=== PATIENT | female | born 2000 | race Caucasian/White ===

== ENCOUNTER 2022-10-04 13:52 | Outpatient (RCR) | payer OTHER, SELFPAY ==
[2022-10-04 14:49] VITALS: BP 112/68; PULSE 83
== END 2023-01-02 23:59 | disposition home or self-care (01) ==
LOC: ANHOBOP 13:52
PROVIDERS: PCP Family Medicine; Visit Provider Obstetrics & Gynecology
DX: O36.8130 Decreased fetal movements, third trimester, not applicable or unspecified (principal); Z3A.32 32 weeks gestation of pregnancy
CPT/HCPCS: 59025

== ENCOUNTER 2022-11-23 21:29 | Inpatient (IN) | payer OTHER, SELFPAY ==
[2022-11-23] VITALS (34 sets, daily range): BP systolic 87–142; BP diastolic 34–103; PULSE 75–226; O2SAT 93–100
[2022-11-23] MEDS: LACTATED RINGERS 500 ML 999 ML IV CONT (22:00)
--- NOTE | 2022-11-23 22:26 | WPDANESEPPF ---
Anes - Initial Pre Proc Eval Procedure: labor epidural Date/Time: 11/23/22 22:26 Surgeon: Ameena Villanueva MD Pre Op Diagnosis: Labor pain Pre Op Diagnosis: Labor Patient Data Age: 22 Gender: F Height: Weight: Last Vital Signs Pulse 88 11/23/22 22:15 BP 115/76 11/23/22 22:15 Allergies Allergy/AdvReac Type Severity Reaction Status Date / Time vancomycin Allergy Unknown Redness of Verified 10/24/22 12:47 Skin Home Medications Medication Instructions Recorded Confirmed Type albuterol sulfate 90 mcg/actuation 1 puff inhalation QID PRN Wheezing 10/24/22 10/24/22 History aerosol inhaler ferrous sulfate 325 mg (65 mg 325 mg PO DAILY 10/24/22 10/24/22 History iron) tablet prenat.vits,cynthia,hlf-gcag-tjixg 1 tablet 10/24/22 History Patient hx anesthesia problems: none Family hx anesthesia problems: none Results Review: All pre-operative results and documents have been reviewed as part of the pre-operative evaluation. [facility] Family History Family History (Updated 10/24/22 @ 12:49 by Ayde Mendoza RN) Other Patient denies significant medical history Social History Social History Substance use: never Spiritual care concerns: No Comments Asthma Anes - Eval Final PreProcedure Day of Procedure 11/23/22 22:26 Patient weight: normal ASA classification: II Anesthetic plan: proceed Anesthesia type and monitoring: regional epidural and standard monitoring Results Review: All pre-operative results and documents have been reviewed as part of the pre-operative evaluation. Informed Consent: The patient's anesthetic plan and its attendant risks and benefits were discussed with the patient/family/POA. Questions were solicited and answers provided to the satisfaction of the patient/family/POA.
[2022-11-23 22:44] LABS: Basophils Percent Auto 0.2 % (0.2-1.2); Eosinophils Absolute Auto 0.3 K/mm3 (0-0.3); Eosinophils Percent Auto 2.3 % (0-4.4); Hematocrit 30.9 % (37.0-47.0); Hemoglobin 10.8 g/dL (12.0-15.0); Immature Granulocyte Absolute 0.04 K/mm3 (0.00-0.031); Immature Granulocyte Percent A 0.4 % (0-0.5); Lymphocytes Absolute Auto 2.14 K/mm3 (0.9-3.2); Lymphocytes Percent Auto 19.6 % (18.3-44.2); Mean Corpuscular Hemoglobin 33.4 pg (26-34); Mean Corpuscular Volume 95.7 fl (80-100); Mean Platelet Volume 10.9 fl (7.4-10.4); Monocytes Absolute Auto 0.7 K/mm3 (0.1-0.6); Monocytes Percent Auto 6.1 % (2.6-8.5); Neutrophils Absolute Auto 7.8 K/mm3 (1.3-6.7); Neutrophils Percent Auto 71.4 % (45.5-73.1); Platelet Count Result 145 k/mm3 (150-375); Red Blood Count 3.23 M/mm3 (4.2-5.4); Red Cell Distribution Width 12.8 % (11.5-14.5); White Blood Count 10.9 K/mm3 (4.5-10.0)
[2022-11-23] MEDS: fentaNYL CITRATE INJ (*CRX) 100 MCG/2 ML VIAL 50 MCG IV PUSH (22:45)
--- NOTE | 2022-11-23 23:49 | WPDANESEPN ---
Anes - Epidural Procedure Note Date/Time: 11/23/22 23:49 Consent: I have discussed with the patient/family/POA, the placement of an epidural catheter and the use of epidural narcotic/local anesthetic for labor analgesia and/or postoperative pain management, including associated potential risks, benefits, complications and side effects. I have discussed alternative methods of labor analgesia and/or postoperative pain management. The patient/family/POA, understand(s) and wish(es) to proceed with epidural narcotic/local anesthetic for labor analgesia and/or postoperative pain management. Time-Out: A pre-procedural Time-Out was completed immediately before starting the procedure and confirmed: Patient Identification, Site, Procedure, Patient Position and the Availability of Requisite Equipment. Clinical Indications: Labor pain Epidural Insertion Note Patient position: sitting Skin prep: chlorhexidine and sterile drape Needle: 18g Tuohy-Schliff Catheter: 20g Unstyleted Technique: Loss of resistance. Level of insertion: L3/4 Catheter skin shannan (cm): 5 Length in epidural space (cm): 10 Skin anesthesia: lidocaine 1% Test dose: 1.5% Lidocaine with 1:[id number] Epi, negative for subarachnoid Inj and negative for intravascular Inj Time of test dose: 23:12 Observations: tolerated well Complications: none
[2022-11-24] VITALS (30 sets, daily range): BP systolic 86–163; BP diastolic 49–117; PULSE 54–136; RESP 14–18; TEMP 36.6–37.5; O2SAT 93–100
[2022-11-24] MEDS: OXYTOCIN 30 UNITS/NS 500 ML 30 UNITS/500 ML BAG 999 UNITS IV CONT (00:17)
[2022-11-24] MEDS: LIDOCAINE HCL 1% LOCAL INJ 20 ML VIAL ×2 (00:20→00:25)
--- NOTE | 2022-11-24 00:43 | WPDHPUPDATE1 ---
History and Physical Update Update Date/Time: 11/24/22 00:43 History and Physical has been reviewed, including an updated exam of the patient. There are NO changes in the patient's condition. Risks, benefits, and alternatives have been discussed and questions answered. Patient agrees to proceed with procedure.
--- NOTE | 2022-11-24 00:43 | PM.OBPRVD ---
OB - Delivery Note Procedure Delivery date: 11/24/22 Procedure: Induction method: None Delivery monitor: External FHT and External Uterine Route of delivery: Episiotomy description: None Laceration Description: Perineal - 2nd Degree Delivery repair: vicryl Quantitative Blood Loss (ml): 250 Anesthesia type: None Disposition: Floor Raymond Baby Date of : 11/24/22 Time of : 00:12 Weeks of gestation at delivery: 40 Infant gender: Female Placenta delivery description: Spontaneous Cord Vessel Description: 3 Vessels score one minute: 8 score five minutes: 8
[2022-11-24] MEDS: OXYTOCIN 30 UNITS/NS 500 ML 30 UNITS/500 ML BAG 125 UNITS IV CONT (00:50)
--- NOTE | 2022-11-24 05:04 | LDADM ---
This patient, Carolina Ge, was admitted to OB 2nd Floor Room 283 on 11/23/22 at 21:29. Plans for labor, pain management and were discussed with patient. Patient/family oriented to hospital policies and general routines including ID bracelet, bed and alarms, visiting hours, pain management, procedures, bathroom and other care routines, personal items, smoking policy, room service/diet and guest tray routines, infant security routines, and visiting hours. Patient/Family are encouraged to report perceived risks to care and to ask questions if they do not understand what they are told or what they should do. See OBIX for further documentation.
[2022-11-24] MEDS: IBUPROFEN 600 MG TABLET PO ×4 (05:10→22:47)
[2022-11-24] MEDS: MULTIVIT/MIN/PREN/FOL AC/IRON TABLET 1 TAB PO (09:30)
[2022-11-24] MEDS: DOCUSATE SODIUM 100 MG CAPSULE PO ×2 (09:30→17:00)
[2022-11-24] MEDS: ACETAMINOPHEN 325 MG TABLET 650 MG PO ×2 (12:30→20:29)
[2022-11-24 13:50] LABS: Rapid Plasma Reagin Non-Reactive (NonReactive)
[2022-11-25] MEDS: ACETAMINOPHEN 325 MG TABLET 650 MG PO (04:49)
[2022-11-25 05:07] LABS: Hematocrit 27.3 % (37.0-47.0); Hemoglobin 9.1 g/dL (12.0-15.0)
--- NOTE | 2022-11-25 07:56 | WPDANLDPN2 ---
Anes-Prog Note L&D Date/Time: 11/25/22 07:56 Comfortable throughout: labor and delivery Neuraxial method: epidural Epidural/Spinal procedure site: clean & non-tender Neuro status: Neuro function grossly intact. Cardiovascular status: normal Respiratory status: normal Airway patency: baseline Mental status: baseline Post-Op hydration status: normal Vital Signs: Last Vital Signs Temp 36.9 C 11/24/22 20:45 Pulse 79 11/24/22 20:45 Resp 16 11/24/22 20:45 BP 114/73 11/24/22 20:45 Pulse Ox 98 11/24/22 20:45 O2 Del Method Autopap 11/24/22 12:30 Pain score (VAS): 2 I/O: Intake & Output 11/24/22 11/24/22 11/25/22 15:59 23:59 07:59 Intake Total 850 500 Balance 850 500 Post-procedural complaints: none Patient feedback: Patient satisfied with anesthetic care.
[2022-11-25 08:10] VITALS: BP 109/69; PULSE 77; RESP 18; TEMP 36.4; O2SAT 100
[2022-11-25] MEDS: WITCH HAZEL 40 PADS 1 PAD TOPICAL (09:00)
[2022-11-25] MEDS: IBUPROFEN 600 MG TABLET PO (09:00)
[2022-11-25] MEDS: DIBUCAINE 1% OINTMENT 30 GM TUBE 1 APPLIC TOPICAL (09:00)
[2022-11-25] MEDS: MULTIVIT/MIN/PREN/FOL AC/IRON TABLET 1 TAB PO (09:00)
[2022-11-25] MEDS: DOCUSATE SODIUM 100 MG CAPSULE PO (09:00)
[2022-11-25] MEDS: POLYSACCHARIDE IRON COMPLEX 150 MG CAPSULE PO (09:00)
--- NOTE | 2022-11-25 09:28 | PM.OBPNVD ---
OB - PN: Subj Subjective Date/time seen: 11/25/22 09:28 Patient comments: no complaints, pain well controlled, incisional pain, tolerating diet and flatus present OB - PN: Obj Data Labs 11/25/22 04:54 Labs: Laboratory Results - last 24 hr 11/23/22 11/25/22 22:39 04:54 Hgb 9.1 L Hct 27.3 L RPR Non-reactive OB - PN A/P Plan day: 1 Plan: routine care Comments: No problems, routine care Time Spent With Patient Time: Total time spent is greater than 50% in coordination of care (as documented) at patient's floor/unit and/or counseling patient: Exam Const: General: comfortable, no acute distress and alert Resp: Effort & Inspection: normal respiratory effort Auscultation: no crackles, no rales and no rhonchi Cardio: Rate: regular rate Heart sounds: no click, no murmurs and no rubs GI: Inspection: non-distended GI Palp: No Tenderness to palpation present (GI) Auscultation: normal bowel sounds Other: Incision - CDI Extrem: General: normal to inspection, no pedal edema and no calf tenderness
--- NOTE | 2022-11-25 09:28 | PM.OBDSVD ---
DS: Admitting Diagnosis Discharge Date 11/25/2022 Admitting Diagnosis term , labor DS: Discharge Diagnosis Discharge Diagnosis (1) Term delivered: Code(s): O80 - Encounter for full-term uncomplicated delivery Status: Acute OB - DS: Summary OB Procedures : None OB Procedures Intrapartum: Spontaneous Vag Delivery OB Procedures: : None Time Spent with Patient Time attestation: Total time spent providing and/or coordinating discharge services: DS: Data Data Completed and Pending Labs on day of discharge: Labs from last 24 hours 11/25/22 11/23/22 04:54 22:39 Hgb 9.1 L Hct 27.3 L RPR Non-reactive Discharge Plan Discharge Discharging Clinician: Ameena Villanueva Patient Disposition: Home, Self-Care Activity: pelvic rest Diet: regular Patient Instructions: Antibiotic Form Stand Alone Forms: General Discharge Information Follow-up/Referrals: Ameena Villanueva MD [Physician] - Discharge Medications: Continued ferrous sulfate 325 mg (65 mg iron) Tablet 325 mg PO DAILY #2 Tablet 1 tablet albuterol sulfate 90 mcg/actuation Hfa Aerosol Inhaler 1 puff INHALATION QID PRN (Reason: Wheezing) Date of admission: 11/23/22 21:29 Primary Care Provider: LeilaPetr Admitting Provider: Ameena Villanueva Attending physician on admission: Ameena Villanueva Condition: Stable
== END 2022-11-25 13:20 | disposition home or self-care (01) | DRG 807 ==
LOC: ANHLDR 22:05 → ANHOB2 11-24 04:42
PROVIDERS: Admitting Provider Obstetrics & Gynecology; PCP Family Medicine; Visit Provider Obstetrics & Gynecology
DX: O62.3 Precipitate labor (principal); Z37.0 Single live birth; Z3A.40 40 weeks gestation of pregnancy; O69.81X0 Labor and delivery complicated by cord around neck, without compression, not applicable or unspecified; O70.1 Second degree perineal laceration during delivery
CPT/HCPCS: 36415; 85014; 85018; 85025; 86592; 86850; 86900; 86901; A9270; J2590; J2795; J3010; J7120

== ENCOUNTER 2024-06-08 17:38 | Observation (INO) | payer OTHER, SELFPAY ==
[2024-06-08] VITALS (14 sets, daily range): BP systolic 104–117; BP diastolic 60–64; PULSE 88–103; O2SAT 100; BMI 23.6
--- OUTSIDE RECORDS SUMMARY | 2024-06-08 17:47 | XMS_ITS | Clinical Summary ---
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 2 8 Active ascorbic acid (VITAMIN C) 500 mg tablet,chewable Take one tablet twice daily 60 tablet/chew tab 8 Active XULANE 150-35 mcg/24 hr 2 9 Active mometasone (NASONEX) 50 mcg/actuation nasal spray 9 Active polyethylene glycol (MIRALAX) 17 gram packetIndicatio ns:constipation Take 1 packet (17 g total) by mouth daily 30 packet 0 Active meclizine (ANTIVERT) 25 mg tablet Take 1 tablet (25 mg total) by mouth 3 (three) times a day as needed for dizziness 30 tablet 1 Active LORazepam (Ativan) 1 mg tablet Take 1 tablet (1 mg total) by mouth 3 (three) times a day as needed for anxiety 15 tablet 1 Active Active Problems Problem Noted Date Diagnosed Date Painful orthopaedic hardware 03/30/2018 Overview (03/30/2018): Added automatically from request for surgery [id number] Flexion contracture of elbow, left 03/30/2018 Overview (03/30/2018): Added automatically from request for surgery [id number] Closed fracture of left distal humerus 8 Overview (10/21/2017): Added automatically from request for surgery [id number] Acne 12/01/2011 Surgical History Surgery Date Site/Laterality Comments TONSILLECTOMY/ADENOIDECTOMY HUMERUS FRACTURE SURGERY Medical History Medical History Date Comments PONV (postoperative nausea and vomiting) Weight loss Asthma Hematuria Kidney stones Back pain Family History Medical History Relation Name Comments No Known Problems Father No Known Problems Mother Relation Name Status Comments Father Mother Social History Tobacco Use Types Packs/Day Years Used Date Smoking Tobacco: Never Smokeless Tobacco: Never Alcohol Use Standard Drinks/Week Comments No 0 (1 standard drink = 0.6 oz pur e alcohol) Comments No Sex and Gender Information Value Date Recorded Sex Assigned at Not on file Legal Sex Female 7:52 PM HUMANITIES DIVISION CHAIR Gender Identity Not on file Sexual Orientation Not on file Obstetrics History Last Filed Vital Signs Vital Sign Reading Time Taken Comments Blood Pressure 96/50 04/15/2022 12:51 PM HUMANITIES DIVISION CHAIR Pulse 57 04/15/2022 12:51 PM HUMANITIES DIVISION CHAIR Temperature 36.6 C (97.8 F) 04/15/2022 12:51 PM HUMANITIES DIVISION CHAIR Respiratory Rate 18 04/15/2022 12:51 PM HUMANITIES DIVISION CHAIR Oxygen Saturation 99% 04/15/2022 12:51 PM HUMANITIES DIVISION CHAIR Inhaled Oxygen Concentration - - Weight 54.5 kg (120 lb 1.6 oz) 04/15/2022 12:51 PM HUMANITIES DIVISION CHAIR Height 157.5 cm (5' 2 ) 04/15/2022 12:51 PM HUMANITIES DIVISION CHAIR Body Mass Index 21.97 04/15/2022 12:51 PM HUMANITIES DIVISION CHAIR Plan of Treatment Health Maintenance Due Date Last Done Comments Cervical Cancer Screening 1999 Depression Screening 1999 Hepatitis C Screening 1999 HPV Vaccines (2 - 2-dose series) 05/27/2014 11/24/2013 Regular Well Visit/Exam 18-64 07/23/2017 DTaP/Tdap/Td Vaccine (7 - Td or Tdap) 11/22/2020 11/22/2010, 12/13/2004, 01/01/2001, Additional history exists Influenza Vaccine (#1) 2024 2, 02/28/2019, 01/26/2017 Pneumococcal vaccine <65 Aged Out 01/01/2001, 05/2000 No longer eligible based on patient's age to complete this topic Varicella Vaccines Completed 08/05/2012, 07/30/2000 Medical Devices Implanted Type Area Granite Polisher Machine Device Identifier Shelf Expiration Date Model / Serial / Lot Plate Short 72mm Ss 2.7/3.5mm Screw 1 Hole Varangl Taper Tip - [id number] Implanted:Qty: 1 on 10/22/2017 by Quinn Bah MD at [facility] Synthes I [id number] / / 3.5mm Cannulated Screws Partially Threaded Implanted:Qty: 1 on 10/22/2017 by Quinn Bah MD at [facility] Synthes I 205.050 / 205.050 / [id number] 2.7mm/ 3.5mm Variable Angle Lcp Posterolateral Distal Humerus Plates Implanted:Qty: 1 on 10/22/2017 by Quinn Bah MD at [facility] Synthes I [id number] [id number] / / Synthes 204.816 3.5mm 6mm 16mm 2.5mm Self Tap Small Hexagonal Socket Low Profile - [id number] Implanted:Qty: 1 on 10/22/2017 by Quinn Bah MD at [facility] Synthes I 204.816 / / Synthes 204.818 3.5mm 6mm 18mm 2.5mm Self Tap Small Hexagonal Socket Low Profile - [id number] Implanted:Qty: 1 on 10/22/2017 by Quinn Bah MD at [facility] Synthes I 204.818 / / Synthes [id number] 2.7mm 16mm Self Tap Lock Variable Angle Stardrive T8 Screw Bone - [id number] Implanted:Qty: 2 on 10/22/2017 by Quinn Bah MD at [facility] Synthes I [id number] / / Synthes 02.211.018 2.7mm 18mm Self Tap Lock Variable Angle Stardrive T8 Screw Bone - [id number] Implanted:Qty: 2 on 10/22/2017 by Quinn Bah MD at [facility] Synthes I .018 / / 2.7mm Variable Angle Locking Screws, Self-Tapping, Wiht T8 [address] Recess Implanted:Qty: 1 on 10/22/2017 by Quinn Bah MD at [facility] Synthe[employer] I .014 / 014 / 2.7 Mm Variable Angle Locking Screws, Self Tapping With T8 [address] Recess Implanted:Qty: 1 on 10/22/2017 by Quinn Bah MD at [facility] Synthes I .040 / .040 / Explanted Type Area Granite Polisher Machine Device Identifier Shelf Expiration Date Model / Serial / Lot 2.7mm Variable Angle Locking Screws, Self-Tapping, Wiht T8 [address] Recess Explanted:Qty: 2 on 10/22/2017 at [facility] Synthes I .022 / 040 / [facility] PLUS [facility] PL[facility] Advance Directives For more information, please contact: [phone] Documents on File Type Date Recorded Patient Straddle Truck Operator Expl anation ADVANCE DIRECTIVE 07/05/2019 10:51 AM Care Teams Conveyancer Relationship Specialty Start Date End Date Charis Stapleton MD PCP - General 01/26/17
--- OUTSIDE RECORDS SUMMARY | 2024-06-08 17:47 | XMS_ITS | Clinical Summary ---
Author Organization 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 Active ondansetron (Zofran) 4 MG TabletIndicatio ns:Epigastric pain,Colicky abdominal pain Take 1 Tablet by mouth every 8 hours as needed for Nausea - 1st line. 15 Tablet 3 Active Active Problems No known active problems Immunizations Immunization Administration Dates Next Due DTAP VACCINE 12/13/2004, 1,06/04/2000,01/12,1999 HEP B/HIB Combined Vaccine 01/01/2001,06/04/2000 ,01/13/2000 Hepatitis A Vaccine, Pediatric/adolescent, 2 Dose Schedule 11/29/2013,08/05/2012 Hepatitis B Vaccine, Pediatric/adolescent 1999 Hib Vaccine,unspecified Formulation 1999 Hpv, Unspecified Formulation 11/24/2013,08/06/19 13 Inactivated Polio Vaccine 12/13/2004,,01/13/2000,09/23 Influenza Vaccine, Quadrivalent, PF 05/30/2021,1 ,01/26/2017 MMR Vaccine 12/13/2004,07/30/2000 Meningococcal Vaccine 01/19/2017 Meningococcal Vaccine, Unspe cified Formulation 11/22/2010 Pneumococcal Vaccine Peds - 7 Valent 01/01/2001, 06/04/2000 TB Skin Test 11/12/2021 TDAP Vaccine 10/06/2022,11/22/2010 Varicella Vaccine Live 08/05/2012,07/30/2000 Social History Tobacco Use Types Packs/Day Years Used Date Smoking Tobacco: Never Smokeless Tobacco: Never Tobacco Cessation:Counseling Given: Not Answered Alcohol Use Standard Drinks/Week Comments Never 0 (1 standard drink = 0.6 oz pur e alcohol) PHQ-2 Answer Date Recorded Total Score - Questions 1-9 0 05/05 Education Answer Date Recorded What is the highest level of school you have completed or the highest degree you have received? Associate degree: occupational, technical, or vocational program 03/19/2023 Sexually Active Control Partners Comments Yes Comments No Sex and Gender Information Value Date Recorded Sex Assigned at Not on file Legal Sex Female 11:53 AM DRILLER AND BROACHER Gender Identity Female 03/19/2023 3:33 PM DRILLER AND BROACHER Sexual Orientation Not on file Last Filed Vital Signs Vital Sign Reading Time Taken Comments Blood Pressure 92/74 03/19/2023 11:01 AM DRILLER AND BROACHER Pulse 98 03/19/2023 11:01 AM DRILLER AND BROACHER Temperature 36.2 C (97.1 F) 03/19/2023 11:01 AM DRILLER AND BROACHER Respiratory Rate 16 03/19/2023 11:01 AM DRILLER AND BROACHER Oxygen Saturation 97% 03/19/2023 11:01 AM DRILLER AND BROACHER Inhaled Oxygen Concentration - - Weight 54.4 kg (120 lb) 03/19/2023 11:01 AM DRILLER AND BROACHER Height 157.5 cm (5' 2 ) 03/19/2023 11:01 AM DRILLER AND BROACHER Body Mass Index 21.95 03/19/2023 11:01 AM DRILLER AND BROACHER Plan of Treatment Health Maintenance Due Date Last Done Comments Hepatitis C Virus (HCV) Screening 1999 Influenza Immunization (#1) 01/03/202405/05, 02/28/2019, 01/26/2017 SARS-COV-2 Immunization ( season) 2024 04/24/2021, 10/07/2020, 09/16/2020 DTaP/Tdap/Td Immunization (8 - Td or Tdap) 10/06/2032 10/06/2022, 11/22/2010, 12/13/2004, Additional history exists Respiratory Syncytial Virus (RSV) Immunization (Adult) (1 - 1-dose 75+ series) 07/23/2074 Hepatitis B Immunization Completed 001, 06/04/2000, 01/13/2000, Additional history exists Pneumococcal Immunization Combined Aged Out 01/01/2001, 06/04/2000 No longer eligibl e based on patient's age to complete this topic Human Papillomavirus (HPV) Immunization Completed 11/24/2013, 08/05/2012 Meningococcal Immunization (ACWY) Completed 01/19/2017, 11/22/2010 Pap Smear Discontinued 05/23/2021 Rotavirus Immunization Aged Out No lo nger eligible based on patient's age to complete this topic Insurance Care Teams Food Safety Officer Relationship Specialty Start Date End Date Petr Dee MD PCP - General Family Medicine 05/30/21 Chasidy Alfred, RESIDENTIAL PROPERTY TAX APPRAISER, POSTDOCTORAL RESEARCH FELLOW [address] [place] [address] Obstetrics & Gynecology 05/30/21
--- OUTSIDE RECORDS SUMMARY | 2024-06-08 17:47 | XMS_ITS | Data Portability ---
Author Organization [facility] Address [address] [place] [address] [place] [address] Care Team Providers Care Parking Regulation Enforcement Officer Name Role Phone LEILA BALLARD Primary Care Provider Assessment Encounter Date Assessment Date Assessment LastModified by Organization Details LastModified Time 03/14/2024 03/14/2024 Patient is ___weeks . Discussed plan. Not available 03/14/2024 16:29:43 04/11/2024 04/11/2024 Patient is ___weeks . Discussed plan. Not available 04/11/2024 17:27:29 05/18/2024 05/18/2024 Patient is ___weeks . Discussed plan. Not available 05/18/2024 15:18:12 06/06/2024 06/06/2024 Patient is ___weeks . Discussed plan. Not available 06/06/2024 11:08:57 Plan of Treatment Reminders Order Date Submit Date Provider Last Modified By Organization Details Last Modified Time Details Appointments OB ROUTINE 2024 03:30P Maryellen VILLANUEVA MD Not available Not available Not available Lab None recorded. Referral None recorded. Procedures None recorded. Surgeries None recorded. Imaging US, obstetric , 2nd or 3rd trimester 2023 024 [email or web address] [facility], [place], [address], 04/11/2024 20:34:31 Medication Orders None recorded. Patient TargetsNo targets recorded. Patient InstructionsNo instructions recorded. Reason for Referral None Reported. Results Created Date Observation Date Name Description Value Unit Range Abnormal Flag Note LastModifiedBy Organization Detail LastModifiedTime 02/15/20 24 02/15/2024 CULTU RE: URINE result report SEE RESULT S BELOW Test: Cultu re: Urine Speci men Sourc e: Urine - Clean Catch Speci men Type: Urine Speci men Date: 02/14 1557 Resul t Date: 02/16 0250 Resul t Statu s: Final resul t Abnor mal: No Resul ting Lab: [facility] [address] [facility] [address] Tel: [phone] CULTU RE ----- ----- ----- --- No growt h in 1 day (dete ction level of 10,00 0 colon ies / ml.) Not Available [facility] (Lab) [address] [place], [address], 02/17/2024 03:54:34 06/06/19 25 06/06/2024 HEMOG LOBIN (HGB) HGB 10.7 g/dL (based on docume nted legal sex) 11.6-1 5.4 low Not Available [facility] (Lab) [address] [place], [address], 06/07/2024 14:20:35 06/06/19 25 06/06/2024 HEMAT OCRIT (HCT) HCT 31.7 % (based on docume nted legal sex) 34.0-4 5.0 low Not Available [facility] (Lab) [address] [place], [address], 06/07/2024 14:20:35 06/06/19 25 06/06/2024 GTT - GESTA MEREDITH Zhang Zhang, ACOG OB glucose, 1 hour screen 111 mg/dL 70-135 Not Available [facility] (Lab) [address] [place], [address], 06/07/2024 14:20:36 06/06/19 25 06/06/2024 HIV 1/2 ANTIG EN/AN TIBOD Y, REFLE X CONFI RMATI ON HIV antigen/anti body Nonrea ctive nonrea ctive HIV-1 antig en and HIV-1 /HIV- 2 antib odies were not detec ethel. No labor atory evide nce of HIV infec tion. Not Available [facility] (Lab) [address] [facility], [place], [address], 06/07/2024 14:20:36 06/06/19 25 06/06/2024 RPR SCREE N, REFLE X TITER /CONF IRMAT ION RPR screen Nonrea ctive nonrea ctive Not Available [facility] (Lab) [address], [place], [address], 06/07/2024 14:20:36 02/15/20 24 02/15/2024 US, obste tric, nucha l trans lucen cy No observ ation record ed. [email or web address] [facility] [address], [place], [address], 02/15/2024 17:20:20 02/15/20 24 02/15/2024 US, obstleti tric, 1st trime ster No observ ation record ed. [email or web address] [facility] [address], [place], [address], 02/15/2024 17:20:29 02/15/20 24 02/15/2024 US, obste tric, follo w-up No observ ation record ed. [email or web address] [address], [place], [address], 02/16/2024 09:25:14 04/11/20 24 04/11/2024 US, obste tric, 2nd or 3rd trime ster No observ ation record ed. [email or web address] [facility] [address], [place], [address], 04/11/2024 18:06:33 04/11/20 24 04/11/2024 US, obste tric, 2nd or 3rd trime ster No observ ation record ed. [email or web address] [address], [place], [address], 04/11/2024 21:24:00 Result Notes None recorded. Problems Name Problem SNOMED Code Status Onset Date Resolution Date Notes Provider Name and Address Organization Details Recorded Time Pregnanc y 71226069 Completed 202211/28/2022 Angela yen [facility] 4 16:11:48 Sciatica 70157686 Completed Beti Palmer [facility], [facility] 3 13:50:28 Pain in round ligament in pregnanc y [id number] 615253 Completed Beti Palmer [facility] 3 13:50:28 Neuralgi a 83980186 Completed lateral foot Beti Palmer [facility], [facility] 3 13:50:28 Pregnanc y 63334090 Active 2023 Angela yen [facility] 4 16:11:48 Problem Notes None recorded. Procedures Surgical History Date Name Laterality Status Provider Name and Address Organization Details Recorded Time 03/13/20 23 Date of Last Pap Smear completed Angela Lowery [facility] 01/18/2024 16:40:21 05/04/19 20 Orthopedic Surgery completed Trudy Hines [facility] 08/04/2022 12:08:58 05/04/19 18 Orthopedic Surgery completed Trudy Hines [facility] 08/04/2022 12:08:38 05/04/19 18 termination of completed Trudy Hines [facility] 08/04/2022 12:09:12 05/04/19 05 tonsilectomy/ad enoids completed Trudy Hines [facility] 08/04/2022 12:08:25 Imaging Results Imaging Date Name Status LastModified by Organization Details LastModified Time 02/15/2024 US, obstetric, nuchal translucency completed [email or web address] [facility] [address], [place], [address], 02/15/2024 17:20:20 02/15/2024 US, obstetric, 1st trimester completed [email or web address] [facility] [address], [place], [address], 02/15/2024 17:20:29 02/15/2024 US, obstetric, follow-up completed [email or web address] [address], [place], [address], 02/16/2024 09:25:14 04/11/2024 US, obstetric, 2nd or 3rd trimester completed [email or web address] [facility] [address], [place], [address], 04/11/2024 18:06:33 04/11/2024 US, obstetric, 2nd or 3rd trimester completed [email or web address] [address], [place], [address], 04/11/2024 21:24:00 Procedure Notes None recorded. Medical Equipment None Reported. Allergies Allergen ID Allergen Name Allergen Category Reaction Reaction Severity Criticality Documentation Date Start Date Code Code System Note Provider Name and Address Organization Details Recorded Time 26972 vancomyci n medicatio n rash severe Not available 04/14/2022 08407 RxNorm Red man syndr ome Marcela Cobb [facility] 2 14:29:33 50410 vancomyci n hydrochlo ride medicatio n other moderate Not available 05/15/2022 06798 RxNorm Marcela Cobb [facility] 3 10:19:19 Medications Name Sig Start Date Stop Date Status Note LastModified by Organization Details LastModified Time ciprofloxaci n 500 mg tablet TAKE 1 TABLET BY MOUTH EVERY 12 HOURS 03/13 completed Not Available Not Available Not Available fluticasone propionate 50 mcg/actuatio n nasal spray,suspen corby SHAKE LIQUID AND USE 1 SPRAY IN EACH NOSTRIL TWICE DAILY 08/04 completed Not Available Not Available Not Available amoxicillin 875 mg-potassium clavulanate 125 mg tablet TAKE 1 TABLET BY MOUTH EVERY 12 HOURS FOR 10 DAYS 08/04 completed Not Available Not Available Not Available Retinol topical cream 03/13 completed Not Available Not Available Not Available Unisom (doxylamine) active Not Available Not Available Not Available active Not Available Not Avai lable Not Available Vitamin 03/13 completed Not Available Not Available Not Available Vitals Date Recorded Body weight Systolic blood pressure Diastolic blood pressure Provider Name and Address Organization Details Last Updated DateTime 03/14/2024 44622.0844 g 115 mm[Hg] 74 mm[Hg] [facility] 03/14/2024 16:30:20 Date Recorded Body height Body mass index (BMI) Body weight Systolic blood pressure Diastolic blood pressure Provider Name and Address Organization Details Last Updated DateTime 04/11/2024 157.48 cm 22.7 kg/m2 80525.45 388 g 111 mm[Hg] 73 mm[Hg] [facility] 4 17:39:53 Date Recorded Body height Body mass index (BMI) Body weight Systolic blood pressure Diastolic blood pressure Provider Name and Address Organization Details Last Updated DateTime 05/18/2024 157.48 cm 23.8 kg/m2 31455.00 81 g 126 mm[Hg] 85 mm[Hg] [facility] 5 15:19:55 Date Recorded Body weight Systolic blood pressure Diastolic blood pressure Provider Name and Address Organization Details Last Updated DateTime 06/06/2024 98514.7852 1 g 113 mm[Hg] 77 mm[Hg] [facility] 06/06/2024 11:10:19 Social History Question Answer Notes LastModified by Organizat ion Details LastModified Time Tobacco Smoking Status Never Smoker Ena Sorensen yovana, [facility] 03/13/2023 13:53:57 Do You Have An Advance Directive? No [email or web address] Information n ot available 08/04/2022 What Is Your Level Of Alcohol Consumption? Occasional [email or web address] Information not available 08/04/2022 If You Are , What Was Your Level Of Alcohol Consumption Prior To ? Occasional [email or web address] Information not available 03/13/2023 How Many Years Have You Consumed Alcohol? 1 [email or web address] Information not available 08/04/2022 Are You Blind Or Do You Have Difficulty Seeing? No Information n ot available 05/15/2022 What Is Your Level Of Caffeine Consumption? Occasional [email or web address] Information not available 08/04/2022 In The 14 Days Before Symptom Onset, Have You Had Close Contact With A Laboratory-confirm ed COVID-19 While That Case Was Ill? No Information n ot available 05/15/2022 In The 14 Days Before Symptom Onset, Have You Had Close Contact With A Person Who Is Under Investigation For COVID-19 While That Person Was Ill? No Information not available 05/15/2022 Have You Been To An Area Known To Be High Risk For COVID-19? No Information not available 05/15/2022 Are You Deaf Or Do You Have Serious Difficulty Hearing? No [email or web address] Information not available 08/04/2022 What Type Of Diet Are You Following? REGULAR Information n ot available 05/15/2022 What Is The Highest Grade Or Level Of School You Have Completed Or The Highest Degree You Have Received? 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 No Information not available 05/15/2022 Do You Use Protection During Sex? No Information not available 05/15/2022 Do You Use Your Seat Belt Or Car Seat Routinely? Yes Information not available 05/15/2022 Do You Have Smoke And Carbon Monoxide Detectors In Your Home? Yes Information not available 05/15/2022 How Much Tobacco Do You Smoke? No Information not available 05/15/2022 Do You Feel Stressed (tense, Restless, Nervous, Or Anxious, Or Unable To Sleep At Night)? [id number] Information not available 05/15/2022 Do You Use Any Illicit Or Recreational Drugs? No Information not available 05/15/2022 Do You Use Sunscreen Routinely? Yes Information not available 05/15/2022 Have You Used IV Drugs? No Information not available 05/15/2022 Sex: Unknown Functional Status Question Answer Note LastModified by Organizat ion Details LastModified Time Do you have difficulty walking or climbing stairs? No [email or web address] Information not available 03/13/2023 Are you able to walk? [email or web address] Information not available 05/15/2022 Are you able to care for yourself? Yes [email or web address] Information not available 03/13/2023 Do you have difficulty dressing or bathing? No [email or web address] Information not available 03/13/2023 What is your exercise level? Occasional [email or web address] Information not available 08/04/2022 Mental Status None recorded. Family History Relationship Description Onset Age of this Age Resolved Age Notes LastModified by Organization Details LastModified Time Father No current problems or disability [email or web address] Not available 03/13 14:02:14 Mother No current problems or disability [email or web address] Not available 03/13 14:02:14 Medical History Condition Response Allergies (Food, seasonal, environmental ) Y Other Y Blood Transfusion N Drug/Latex Allergies/Reactions N Breast Cancer N Dermatologic Disorders N Lung Disease N Defects or Inherited Disease N Breast Problem N Gestational Diabetes N Hematologic disorders N Anesthesia Complications N History of STI N Deep Vein Thrombosis N Polycystic ovary syndrome N Anxiety Disorder N Autoimmune disease N Arthritis N Infertility N Polyps N Acid Reflux (GERD) N History of abnormal pap N Cancer N Stroke N Varicosities N Neurologic/Epilepsy N Endometriosis N High Cholesterol N Headaches N Fibromyalgia N Kidney Disease N Heart Problems N Kidney or Bladder Problems N Thyroid Problems N GI Problems N Eating Disorder N Anemia N Art (IVF or FET) N Psychiatric Illness N Ovarian Cancer N Diabetes N Pulmonary (TB, Asthma) N Hepatitis/Liver Disease N No Past Medical History N Eczema N Urinary Tract Infection Y Abuse/Domestic Violence N Asthma Y Trauma/Violence N Depression/ depression N Heart Disease N Pre-Eclampsia N Hypertension N Osteoporosis N Thrombophilias N Gynecological History Statement/Question Response Flow Moderate Date of LMP 11/23/2023 On BCP's at Conception? N N Was last menstrual period normal Y STIs/STDs N HPV Vaccine N Duration of Flow (days) 4 Current Control Method Age at First Child 22 Are cycles usually normal Y Frequency of Cycle (Q days) 20 Sexually Active? Y Menses Monthly Y Age of first menstrual cycle 12 Date of Last Pap Smear 03/13/2023 Sexual Problems? N Desired Control Method None LMP Definite N Obstetrics History GPAL:G 3 P 1 0 1 1 Type Value Full Term 1 Induced 1 Living 1 Total 3 Past Encounters Encounter ID Performer Location Encounter Start Date Encounter Closed Date Diagnosis/Indication Diagnosis SNOMED-CT Code Diagnosis ICD10 Code Diagnosis Note [id number] Mae Madsen [facility] [address] [address] 04/14/2022 11:55:25 04/14/2022 12:48:52 [id number] Camilo Villanueva MD [facility] [address] [address] 04/14/2022 11:57:14 04/14/2022 15:10:00 Amenorrhea 20177249 N91.2 this patient is a 21-year-ol d female presents for amenorrhea . She has a positive test that an ultrasound today that revealed an 8 week 1 day IUP. This matched perfectly with her last menstrual period. We talked about . Talked about genetic screening. Talked about care. Talked about precaution s in as they relate to diet, exercise, medication s. Talked about her medical history in detail. She has an unremarkab le medical history for an obstetric contacts. She has some very mild asthma. She is had a episode of tinnitus that resolved. 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 She had 2 orthopedic elbow surgeries. Will begin routine care in open up her chart next visit at 12 weeks. We talked about the genetic components of the 12 week ultrasound . We spent over 20 minutes face-to-fa ce. More than 50% was counseling . [id number] Sondra Arrieta [facility] [address] [address] 05/15/2022 09:27:46 05/15/2022 09:55:36 screening 096256022 Z36.82 [id number] Camilo Villanueva MD [facility] [address],[place] [address] 05/15/2022 09:28:29 05/15/2022 11:11:23 Routine care 961135391 Z34.81 [id number] [facility] [address],[place] [address] 06/09/2022 16:26:28 06/09/2022 17:18:02 [id number] Camilo Villanueva MD [facility] [address],[place] [address] 06/09/2022 16:27:10 06/09/2022 17:46:10 Routine care 506176625 Z34.81 [id number] [facility] [address],[place] [address] 07/07/2022 11:59:35 07/07/2022 14:28:33 screening for malformation 201052874 Z36.3 [id number] Camilo Villanueva MD [facility] [address],[place] [address] 07/07/2022 11:59:57 07/07/2022 14:50:36 Routine care 302546877 Z34.81 [id number] [facility] [address] [place] [address] 07/28/2022 14:24:12 07/28/2022 15:13:53 Reduced movement 612468876 O36.8120 O99.891 Z3A.23 [id number] Irene Stevens [facility] [address],[place] [address] 08/04/2022 11:58:10 08/05/2022 18:01:18 Routine care 354483928 Z34.92 [id number] Camilo Villanueva MD [facility] [address],[place] [address] 09/05/2022 11:46:03 09/05/2022 12:27:42 Routine care 662763963 Z34.81 [id number] Mae Madsen [facility] [address],[place] [address] 09/09/2022 13:50:01 09/09/2022 14:36:32 Uterine size for dates discrepancy 440952133 O26.843 Z3A.29 [id number] Camilo Villanueva MD [facility] [address],[place] [address] 09/15/2022 14:46:05 09/15/2022 15:36:49 Routine care 556304624 Z34.81 [id number] Camilo Villanueva MD [facility] [address],[place] [address] 10/02/2022 14:56:27 10/02/2022 15:54:10 Routine care 795870084 Z34.81 [id number] Sondraeleazar Brittonson [facility] [address],[place] [address] 10/16/2022 11:09:36 10/16/2022 13:59:09 Uterine size for dates discrepancy 703533245 O26.843 Z3A.34 [id number] Camilo Villanueva MD [facility] [address],[place] [address] 10/16/2022 11:10:10 10/16/2022 13:58:52 Routine care 344985456 Z34.81 [id number] Camilo Villanueva MD [facility] [address],[place] [address] 10/29/2022 15:18:27 10/29/2022 16:19:18 Routine care 434162106 Z34.81 [id number] MD Lazaro López [address],[place] [address] 11/06/2022 11:02:33 11/06/2022 12:11:47 Routine care 366610452 Z34.81 [id number] MD Lazaro López [address],[place] [address] 11/13/2022 11:55:33 11/13/2022 13:15:38 Routine care 599787937 Z34.81 [id number] MD Lazaro López [address],[place] [address] 11/21/2022 11:55:21 11/21/2022 14:26:36 Routine care 204396969 Z34.81 [id number] Camilo Villanueva MD [facility] [address],[place] [address] 12/25/2022 15:05:41 12/25/2022 15:40:46 care 630830449 Z39.2 [id number] Camilo Villanueva MD [facility] [address],[place] [address] 03/13/2023 13:53:30 03/13/2023 14:23:44 Gynecologic examination 00521738 Z01.419 Annual gynecologi cynthia exam performed. Patient will come back in a year unless there are new symptoms. Suggest Calcium with Vitamin D if not eating in diet. Patient advised to get annual flu shot. Recommend yearly physicals and preform monthly breast exams. Genetic testing is available for patients with family history of cancer. Engage in safe sexual practices, use condoms. Encouraged to have daily exercise. Avoid tobacco and illicit drugs, moderation of alcohol. If BMI greater than 25 dietary consult advised. If you have any questions please call or email. mammogram- colon cancer screening - DEXA scan- Pap smear- laboratory evaluation - [id number] MD Lazaro López [address],[place] [address] 01/18/2024 15:47:36 01/18/2024 17:35:27 Amenorrhea 13558781 N91.2 this patient is a 23-year-ol d female who presents for amenorrhea . She is a positive test. Ultrasound revealed a 1st trimester gestation. Patient has no complaints . We talked about early care. Talked about genetic screening. We talked about her ultrasound results. We talked about the 12 week ultrasound that has genetic screening components . She was given recommenda tions on exercise, diet, over-the-c ounter medication s. We reviewed her obstetric history. We reviewed her medical history. We reviewed her social history. She will begin routine care at her next visit. [id number] [facility] [address],[place] [address] 01/18/2024 15:48:07 01/18/2024 16:12:53 [id number] [facility] [address],[place] [address] 02/15/2024 15:23:56 02/15/2024 16:05:49 screening 289788503 Z36.82 Z3A.12 [id number] Camilo Villanueva MD [facility] [address],[place] [address] 02/15/2024 15:25:17 02/15/2024 16:52:00 Routine care 511963149 Z34.81 [id number] Camilo Villanueva MD [facility] [address],[place] [address] 03/14/2024 16:01:18 03/14/2024 16:46:47 Routine care 995835926 Z34.81 [id number] [facility] [address],[place] [address] 04/11/2024 16:04:14 04/11/2024 17:18:16 screening for malformation 591456192 Z36.3 Z3A.20 [id number] Camilo Villanueva MD [facility] [address],[place] [address] 04/11/2024 16:05:00 04/11/2024 18:02:15 Routine care 333640576 Z34.81 [id number] Camilo Villanueva MD [facility] [address] [address] 05/18/2024 15:06:22 05/18/2024 15:45:49 Routine care 916957272 Z34.81 [id number] Camilo Villanueva MD [facility] [address] [address] 06/06/2024 10:36:56 06/06/2024 12:01:47 Routine care 095897514 Z34.81 Health Concerns Section Related Observation LastModified by Organization Detai ls LastModified Time None Recorded Concern Status LastModified by Organization Details LastModified Time None Recorded Advance Directives Directive N: Payers Encounter Date Sequence Insurance Name Policy Number Policy Villanueva Covered Member ID Villanueva Member ID Guarantor Name 03/14/2024 1 [facility] Joo [id number] [place] Ge 04/11/2024 1 [facility] Jamey Ge [id number] [place] Ge 04/11/2024 1 [facility] Jamey Ge [id number] [place] Ge 05/18/2024 1 [facility] Jamey Ge [id number] [place] Ge 06/06/2024 1 [facility] Jamey Ge [id number] [place] Ge OBGyn Episode Ob Episode Information Episode Created Date Number of Fetuses Patient Bloodtype Patient rh Status Prepregnancy Weight lbs Domestic Partner Domestic Partner Phone Father Name Shelter Director Status 05/15/19 23 1 A Positive 121 CLOSED Fetus Data First Name Last Name Admitted to NICU Weight (g) Sex Living Outcome Pediatric Complications Fetus ID Race Codes Race Delivery Type 3203.49 35 F true Full Term [id number] [id number] Vaginal Delivery Problems Problem Notes Problem Name Start Date End Date Resolution Snomed Code Not e Neuralgia 88095792 lateral fo ot Sciatica 27191665 Pain in round ligament in 52274290601046829 Butch Calculation Initial Butch Date Initial Exam Date Initial Exam Provider Initial Ultrasound Date Last Menstrual Period Date Ultra Sound Weeks Gestation 11/23/2022 05/15/2022 04/14/2022 02/16/2022 8 Eighteen To Twenty Week Butch Update Ultra Sound Date Fundal Height At Umbil Quickening Date Ultra Sound Latest Weeks Gestation Final Butch Confirmed By Final Butch Confirmed Date Final Butch Date Ultra Sound Latest Days Gestation 0 [email or web address] 05/15/2022 11/24/19 23 0 Pre-dmitry Flowsheet Flowsheet Date 05/15/2022 Valladares Score Blood Edema Fundus Height Fundus Units Glucose Ketones Leukocytes Nitrite Labor Signs Protein Cervic Dilation Cervic Effacement Cervic Station 12 Type Weight in lbs Pre/Post Dialysis Refused Weight 119.810001255039 BP Diastolic BP Location Tested BP Systolic BP Type 53 R arm 112 sitting Fetus Heart Rate Present A 162 Fetus Movement Comments This patient is a 21-year-ol d 20000505 weeks gestation presents for initial care. She is vaccinated for COVID was given other vaccine recommendations. We discussed care in great detail. She has already had genetic screening and it was normal. Her labs have been done. She had a normal nuchal translucency and nasal bone today. She will begin routine care. She has no complaints and no problems. Flowsheet Date 06/09/2022 Valladares Score Blood Edema Fundus Height Fundus Units Glucose Ketones Leukocytes Nitrite Labor Signs Protein Cervic Dilation Cervic Effacement Cervic Station Type Weight in lbs Pre/Post Dialysis Refused BP Diastolic BP Location Tested BP Systolic BP Type Fetus Heart Rate Present Fetus Movement Comments Flowsheet Date 06/09/2022 Valladares Score Blood Edema Fundus Height Fundus Units Glucose Ketones Leukocytes Nitrite Labor Signs Protein Cervic Dilation Cervic Effacement Cervic Station neg none 15 none trace Type Weight in lbs Pre/Post Dialysis Refused Weight 120.134693964511 BP Diastolic BP Location Tested BP Systolic BP Type 59 115 Fetus Heart Rate Present A 138 Fetus Movement A No Comments reports continued sciatic ne rve pain, has some round ligament pain now. She was given recommendations for sciatica and round ligament pain. Ultrasound today for gender. No other issues Flowsheet Date 07/07/2022 Valladares Score Blood Edema Fundus Height Fundus Units Glucose Ketones Leukocytes Nitrite Labor Signs Protein Cervic Dilation Cervic Effacement Cervic Station Type Weight in lbs Pre/Post Dialysis Refused BP Diastolic BP Location Tested BP Systolic BP Type Fetus Heart Rate Present Fetus Movement Comments Flowsheet Date 07/07/2022 Valladares Score Blood Edema Fundus Height Fundus Units Glucose Ketones Leukocytes Nitrite Labor Signs Protein Cervic Dilation Cervic Effacement Cervic Station 20 Type Weight in lbs Pre/Post Dialysis Refused Weight 125.523501593534 BP Diastolic BP Location Tested BP Systolic BP Type 59 R arm 118 sitting Fetus Heart Rate Present A 145 Fetus Movement Comments No complaints, no problems, discussed delivery. Flowsheet Date 07/28/2022 Valladares Score Blood Edema Fundus Height Fundus Units Glucose Ketones Leukocytes Nitrite Labor Signs Protein Cervic Dilation Cervic Effacement Cervic Station Type Weight in lbs Pre/Post Dialysis Refused BP Diastolic BP Location Tested BP Systolic BP Type Fetus Heart Rate Present Fetus Movement Comments Flowsheet Date 08/04/2022 Valladares Score Blood Edema Fundus Height Fundus Units Glucose Ketones Leukocytes Nitrite Labor Signs Protein Cervic Dilation Cervic Effacement Cervic Station neg none 23 none trace Type Weight in lbs Pre/Post Dialysis Refused Weight 130.546164856541 BP Diastolic BP Location Tested BP Systolic BP Type 63 111 Fetus Heart Rate Present A 149 Fetus Movement A Yes Comments Doing well. Encouraged to st art thinking about preferences, feeding methods, and pedi. Pt already knows she would like an epidural. Flowsheet Date 09/05/2022 Valladares Score Blood Edema Fundus Height Fundus Units Glucose Ketones Leukocytes Nitrite Labor Signs Protein Cervic Dilation Cervic Effacement Cervic Station 26 Type Weight in lbs Pre/Post Dialysis Refused Weight 135.82236778661 BP Diastolic BP Location Tested BP Systolic BP Type 65 R arm 114 sitting Fetus Heart Rate Present A 150 Fetus Movement Comments Sciatic persists, no problem s otherwise, no complaints. Small for gestational age. To get ultrasound Flowsheet Date 09/09/2022 Valladares Score Blood Edema Fundus Height Fundus Units Glucose Ketones Leukocytes Nitrite Labor Signs Protein Cervic Dilation Cervic Effacement Cervic Station Type Weight in lbs Pre/Post Dialysis Refused BP Diastolic BP Location Tested BP Systolic BP Type Fetus Heart Rate Present Fetus Movement Comments Flowsheet Date 09/15/2022 Valladares Score Blood Edema Fundus Height Fundus Units Glucose Ketones Leukocytes Nitrite Labor Signs Protein Cervic Dilation Cervic Effacement Cervic Station 30 Type Weight in lbs Pre/Post Dialysis Refused Weight 135.32932781992 BP Diastolic BP Location Tested BP Systolic BP Type 73 R arm 110 sitting Fetus Heart Rate Present A 145 Fetus Movement Comments Reports pain in her lateral foot and lateral lower extremity distally. It is intermittent. It calms after sitting for some time. does not cross her legs. Growth ultrasound. 16% growth Flowsheet Date 10/02/2022 Valladares Score Blood Edema Fundus Height Fundus Units Glucose Ketones Leukocytes Nitrite Labor Signs Protein Cervic Dilation Cervic Effacement Cervic Station 31 Type Weight in lbs Pre/Post Dialysis Refused Weight 141.770905699325 BP Diastolic BP Location Tested BP Systolic BP Type 69 R arm 109 sitting Fetus Heart Rate Present A 134 Fetus Movement Comments no complaints, no problems p ersistent sciatica but improved, has follow-up ultrasound for SGA Flowsheet Date 10/16/2022 Valladares Score Blood Edema Fundus Height Fundus Units Glucose Ketones Leukocytes Nitrite Labor Signs Protein Cervic Dilation Cervic Effacement Cervic Station Type Weight in lbs Pre/Post Dialysis Refused BP Diastolic BP Location Tested BP Systolic BP Type Fetus Heart Rate Present Fetus Movement Comments Flowsheet Date 10/16/2022 Valladares Score Blood Edema Fundus Height Fundus Units Glucose Ketones Leukocytes Nitrite Labor Signs Protein Cervic Dilation Cervic Effacement Cervic Station none trace Type Weight in lbs Pre/Post Dialysis Refused Weight 141.411282040296 BP Diastolic BP Location Tested BP Systolic BP Type 73 R arm 117 sitting Fetus Heart Rate Present Fetus Movement Comments no complaints, no problems, good growth ultrasound today Flowsheet Date 10/29/2022 Valladares Score Blood Edema Fundus Height Fundus Units Glucose Ketones Leukocytes Nitrite Labor Signs Protein Cervic Dilation Cervic Effacement Cervic Station 36 none trace Type Weight in lbs Pre/Post Dialysis Refused Weight 144.103190145689 BP Diastolic BP Location Tested BP Systolic BP Type 68 R arm 113 sitting Fetus Heart Rate Present A 145 Fetus Movement Comments No complaints, no problems, routine pressure and discomfort. Head is low, cervix is posterior, could not palpate Flowsheet Date 11/06/2022 Valladares Score Blood Edema Fundus Height Fundus Units Glucose Ketones Leukocytes Nitrite Labor Signs Protein Cervic Dilation Cervic Effacement Cervic Station none trace Type Weight in lbs Pre/Post Dialysis Refused Weight 145.1955595207 BP Diastolic BP Location Tested BP Systolic BP Type 76 R arm 111 sitting Fetus Heart Rate Present Fetus Movement Comments Flowsheet Date 11/13/2022 Valladares Score Blood Edema Fundus Height Fundus Units Glucose Ketones Leukocytes Nitrite Labor Signs Protein Cervic Dilation Cervic Effacement Cervic Station 38 none trace Type Weight in lbs Pre/Post Dialysis Refused Weight 145.6611998569 BP Diastolic BP Location Tested BP Systolic BP Type 74 R arm 115 sitting Fetus Heart Rate Present A 145 Fetus Movement A Yes Comments No complaints, no problems, routine care, going to observe for labor instead induction Flowsheet Date 11/21/2022 Valladares Score Blood Edema Fundus Height Fundus Units Glucose Ketones Leukocytes Nitrite Labor Signs Protein Cervic Dilation Cervic Effacement Cervic Station 39 none trace Type Weight in lbs Pre/Post Dialysis Refused Weight 145.7820223059 BP Diastolic BP Location Tested BP Systolic BP Type 82 R arm 126 sitting Fetus Heart Rate Present A 145 Fetus Movement A Yes Comments No complaints, no problems, routine care, induction set up for 11/26 Menstrual History Last Menstrual Date Menses Monthly On Bcp Conception Prior Menses Frequency Hcg Plus Date Menarche Onset Age 1002/16/2022 Genetic Screening And Infection History Question Response Note Mental Retardation/Autism false Patient's Age Will Be 35 Years Or Older At Estim ated Date of Delivery false Thalassemia (Syriac, French, Mediterranean, Or Background): MCV < 80 false Neural Tube Defect (Meningomyelocele, Spina Bifi da, Or Anencephaly) false Congenital Heart Defect false Down Syndrome false Aaron-Sachs (eg, Scientology, Cajun, Kazakh-Ripley) f alse Irina Disease false Sickle Cell Disease Or Trait () false Hemophilia Or Other Blood Disorders false Muscular Dystrophy false Cystic Fibrosis false La's Chorea false Intellectual Disability/Autism false If Yes, Was Person Tested For Fragile X? false Other Inherited Genetic Or Chromosomal Disorder false Maternal Metabolic Disorder (eg, Type 1 Diabetes , PKU) false Patient Or Baby's Father Had A Child With Defects Not Listed Above false Recurrent Loss, Or A Stillbirth false Medications (including Suppl ements, Vitamins, Herbs, OTC Drugs), Illicit/Recreational Drugs, Alcohol false If Yes, Agent(s) And Strength/Dosage false Any Other Genetic History false Live With Someone With TB Or Exposed To TB false Patient Or Partner Has History Of Genital Herpes false Rash Or Viral Illness Since Last Menstrual Perio d false History Of STD, Gonorrhea, Chlamydia, HPV, Syphi lis false Other Infection History false History of HIV false History of Hepatitis false Prior GBS-infected child false Hemoglobinopathy Or Carrier false Other Structural Defect false Recent Travel History Outside of Country false Delivery Information Delivery Date Delivery Type Labor Anesthesia Weeks Gestation Incision Type Labor Labor Length Hrs Delivered By Post Complications Tubal Sterilization Discharge Date Comments 3 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 Camilo Glaser MD precip labor, RLP, sciatica Discharge Information Feeding Method Contraceptive Method Maternal HG B and HCT Levels Ob Episode Information Episode Created Date Number of Fetuses Patient Bloodtype Patient rh Status Prepregnancy Weight lbs Domestic Partner Domestic Partner Phone Father Name Shelter Director Status 04/14/20 22 1 CLOSED Fetus Data First Name Last Name Admitted to NICU Weight (g) Sex Living Outcome Pediatric Complications Fetus ID Race Codes Race Delivery Type , Induced [id number] Butch Calculation Initial Butch Date Initial Exam Date Initial Exam Provider Initial Ultrasound Date Last Menstrual Period Date Ultra Sound Weeks Gestation 0 Eighteen To Twenty Week Butch Update Ultra Sound Date Fundal Height At Umbil Quickening Date Ultra Sound Latest Weeks Gestation Final Butch Confirmed By Final Butch Confirmed Date Final Butch Date Ultra Sound Latest Days Gestation 0 0 Menstrual History Last Menstrual Date Menses Monthly On Bcp Conception Prior Menses Frequency Hcg Plus Date Menarche Onset Age Delivery Information Delivery Date Delivery Type Labor Anesthesia Weeks Gestation Incision Type Labor Labor Length Hrs Delivered By Post Complications Tubal Sterilization Discharge Date Comments 8 Discharge Information Feeding Method Contraceptive Method Maternal HG B and HCT Levels Ob Episode Information Episode Created Date Number of Fetuses Patient Bloodtype Patient rh Status Prepregnancy Weight lbs Domestic Partner Domestic Partner Phone Father Name Shelter Director Status 02/15/20 24 1 A Positive OPEN Fetus Data First Name Last Name Admitted to NICU Weight (g) Sex Living Outcome Pediatric Complications Fetus ID Race Codes Race Delivery Type [id number] Butch Calculation Initial Butch Date Initial Exam Date Initial Exam Provider Initial Ultrasound Date Last Menstrual Period Date Ultra Sound Weeks Gestation 02/15/2024 02/15/2024 11/23/2023 12 Eighteen To Twenty Week Butch Update Ultra Sound Date Fundal Height At Umbil Quickening Date Ultra Sound Latest Weeks Gestation Final Butch Confirmed By Final Butch Confirmed Date Final Butch Date Ultra Sound Latest Days Gestation 0 [email or web address] 02/15/2024 08/28/19 25 0 Pre-dmitry Flowsheet Flowsheet Date 02/15/2024 Valladares Score Blood Edema Fundus Height Fundus Units Glucose Ketones Leukocytes Nitrite Labor Signs Protein Cervic Dilation Cervic Effacement Cervic Station Type Weight in lbs Pre/Post Dialysis Refused Weight 120.710857791743 BP Diastolic BP Location Tested BP Systolic BP Type 81 L arm 123 sitting Fetus Heart Rate Present A 145 Fetus Movement A No Comments this patient is a 23-year-ol d multiparous female at 12 weeks' gestation who presents for initial care. She has a history of term vaginal births. Her medical, surgical, obstetric history is unremarkable. She is vaccinated. She was given precautions recommendations for . We talked about vaccines in . Talked about care in detail. She is having genetic testing. She had a normal 12 week ultrasound. To begin routine care. Flowsheet Date 03/14/2024 Valladares Score Blood Edema Fundus Height Fundus Units Glucose Ketones Leukocytes Nitrite Labor Signs Protein Cervic Dilation Cervic Effacement Cervic Station Type Weight in lbs Pre/Post Dialysis Refused 120.760085241506 BP Diastolic BP Location Tested BP Systolic BP Type 74 L arm 115 sitting Fetus Heart Rate Present A 145 Fetus Movement A Yes Comments no complaints, no problems, routine care, no contractions, no vaginal bleeding, no loss of fluid, no cramping Flowsheet Date 04/11/2024 Valladares Score Blood Edema Fundus Height Fundus Units Glucose Ketones Leukocytes Nitrite Labor Signs Protein Cervic Dilation Cervic Effacement Cervic Station Type Weight in lbs Pre/Post Dialysis Refused BP Diastolic BP Location Tested BP Systolic BP Type Fetus Heart Rate Present Fetus Movement Comments Flowsheet Date 04/11/2024 Valladares Score Blood Edema Fundus Height Fundus Units Glucose Ketones Leukocytes Nitrite Labor Signs Protein Cervic Dilation Cervic Effacement Cervic Station Type Weight in lbs Pre/Post Dialysis Refused 124.823041035359 BP Diastolic BP Location Tested BP Systolic BP Type 73 L arm 111 sitting Fetus Heart Rate Present A 144 Fetus Movement A Yes Comments no complaints, no problems, routine care, no contractions, no vaginal bleeding, no loss of fluid, no cramping Flowsheet Date 05/18/2024 Valladares Score Blood Edema Fundus Height Fundus Units Glucose Ketones Leukocytes Nitrite Labor Signs Protein Cervic Dilation Cervic Effacement Cervic Station Type Weight in lbs Pre/Post Dialysis Refused 130.979470286993 BP Diastolic BP Location Tested BP Systolic BP Type 85 L arm 126 sitting Fetus Heart Rate Present A 145 Fetus Movement A Yes Comments no complaints, no problems, routine care, no contractions, no vaginal bleeding, no loss of fluid, no cramping Flowsheet Date 06/06/2024 Valladares Score Blood Edema Fundus Height Fundus Units Glucose Ketones Leukocytes Nitrite Labor Signs Protein Cervic Dilation Cervic Effacement Cervic Station Type Weight in lbs Pre/Post Dialysis Refused 133.487244930666 BP Diastolic BP Location Tested BP Systolic BP Type 77 L arm 113 sitting Fetus Heart Rate Present A 147 Fetus Movement A Yes Comments no complaints, no problems, routine care, no contractions, no vaginal bleeding, no loss of fluid, no cramping Menstrual History Last Menstrual Date Menses Monthly On Bcp Conception Prior Menses Frequency Hcg Plus Date Menarche Onset Age 0711/23/2023 true Delivery Information Delivery Date Delivery Type Labor Anesthesia Weeks Gestation Incision Type Labor Labor Length Hrs Delivered By Post Complications Tubal Sterilization Discharge Date Comments Discharge Information Feeding Method Contraceptive Method Maternal HG B and HCT Levels
--- OUTSIDE RECORDS SUMMARY | 2024-06-08 17:47 | XMS_ITS | Referral Summary ---
Author Organization [facility] Healthcare Address [address] [place] [address] Care Team Providers Care Service Station Cashier Name Role Phone Charis Stapleton MD Primary [...] (03/30/2018): Added automatically from request for surgery [id number] Flexion contracture of elbow, left 03/30/2018 Overview (03/30/2018): Added automatically from request for surgery [id number] Closed fracture of left distal humerus 8 Overview (10/21/2017): Added automatically from request for surgery [id number] Acne 12/01/2011 Social History Tobacco Use Types Packs/Day Years Used Date Smoking Tobacco: Never Smokeless Tobacco: Never Alcohol Use Standard Drinks/Week Comments No 0 (1 standard drink = 0.6 oz pur e alcohol) Comments No Sex and Gender Information Value Date Recorded Sex Assigned at Not on file Legal Sex Female 7:52 PM SMASH [employer]ECER Gender Identity Not on file Sexual Orientation Not on file Last Filed Vital Signs Vital Sign Reading Time Taken Comments Blood Pressure 96/50 04/15/2022 12:51 PM SMASH PIECER Pulse 57 04/15/2022 12:51 PM [employer]ASH PIEC[employer] Temperature 36.6 C (97.8 F) 04/15/2022 12:51 PM [employer] PIECER Respiratory Rate 18 04/15/2022 12:51 PM SMASH PIECER Oxygen Saturation 99% 04/15/2022 12:51 PM SM[employer] PIECER Inhaled Oxygen Concentration - - Weight 54.5 kg (120 lb 1.6 oz) 04/15/2022 12:51 PM SMASH PIECER Height 157.5 cm (5' 2 ) 04/15/2022 12:51 PM SMASH PIECER Body Mass Index 21.97 04/15/2022 12:51 PM SMASH PIECER Plan of Treatment Not on file Medical Devices Implanted Type Area Firestopper Installer Device Identifier Shelf Expiration Date Model / Serial / Lot Plate Short 72mm Ss 2.7/3.5mm Screw 1 Hole Varangl Taper Tip - [id number] Implanted:Qty: 1 on 10/22/2017 by Quinn Bah MD at [facility] Synthes I [id number] / / 3.5mm Cannulated Screws Partially Threaded Implanted:Qty: 1 on 10/22/2017 by Quinn Bah MD at [facility] Synthe[employer] I 205.050 / 205.050 / [id number] 2.7mm/ 3.5mm Variable Angle Lcp Posterolateral Distal Humerus Plates Implanted:Qty: 1 on 10/22/2017 by Quinn Bah MD at [facility] Synthes I [id number] 02.117.307 / / Synthes 204.816 3.5mm 6mm 16mm 2.5mm Self Tap Small Hexagonal Socket Low Profile - [id number] Implanted:Qty: 1 on 10/22/2017 by Quinn Bah MD at [facility] S[employer] I 204.816 / / Synthes 204.818 3.5mm 6mm 18mm 2.5mm Self Tap Small Hexagonal Socket Low Profile - [id number] Implanted:Qty: 1 on 10/22/2017 by Quinn Bah MD at [facility] Synthe[employer] I 204.818 / / Synthes 211.016 2.7mm 16mm Self Tap Lock Variable Angle Stardrive T8 Screw Bone - [id number] Implanted:Qty: 2 on 10/22/2017 by Quinn Bah MD at [facility] Synthe[employer] I ..016 / / Synthes .018 2.7mm 18mm Self Tap Lock Variable Angle Stardrive T8 Screw Bone - [id number] Implanted:Qty: 2 on 10/22/2017 by Quinn Bah MD at [facility] Synthe[employer] I .018 / / 2.7mm Variable Angle Locking Screws, Self-Tapping, Wiht T[address] Recess Implanted:Qty: 1 on 10/22/2017 by Quinn Bah MD at [facility] Synthe[employer] I ..014 / 014 / 2.7 Mm Variable Angle Locking Screws, Self Tapping With T8 [address] Recess Implanted:Qty: 1 on 10/22/2017 by Quinn Bah MD at [facility] Synthe[employer] I ..040 / .040 / Explanted Type Area Firestopper Installer Device Identifier Shelf Expiration Date Model / Serial / Lot 2.7mm Variable Angle Locking Screws, Self-Tapping, Wiht T8 [address] Recess Explanted:Qty: 2 on 10/22/2017 at [facility] Synthes I 02..022 / .040 / Insurance [employer] [facility] [employer] [facility] [employer] PLUS [place] [id number] Advance Directives For more information, please contact: [phone] Documents on File Type Date Recorded Patient Geology Instructor Expl anation ADVANCE DIRECTIVE 07/05/2019 10:51 AM Care Teams Service Station Cashier Relationship Specialty Start Date End Date Charis Stapleton MD PCP - General 01/26/17
[2024-06-08 18:53] LABS: Add Urine Microscopic? YES; Appearance Urine Clear (Clear); Bacteria Urine Rare /hpf; Bilirubin Urine Negative (Negative); Blood Urine Negative (Negative); Color Urine Yellow (Yellow); Glucose Urine UA Negative (Negative); Ketones Urine 1+ mg/dL (Negative); Leukocyte Esterase Ur 1+ LEU/UL (Negative); Nitrate Urine Negative (Negative); Non Pathogenic Casts 0-2; Protein Urine Negative (Negative); RBC Urine 0-2 /hpf (0-2); Specific Grav Ur 1.018 (1.001-1.035); Squamous Epithelial Cell Urine Moderate /hpf (Few); pH Urine 7.5 (5.0-9.0)
--- NOTE | 2024-06-08 18:58 | OBADM ---
This patient, Carolina Ge, admitted to the OB room OB Post 117 for observation. Patient/family oriented to hospital policies and general routines including ID bracelet, bed and alarms, visiting hours, pain management, procedures, bathroom and other care routines, personal items, smoking policy, room service/diet, and visiting hours. Patient/Family are encouraged to report perceived risks to care and to ask questions if they do not understand what they are told or what they should do.
--- NOTE | 2024-06-08 19:04 | PC.NURSE ---
Susana Lizarraga CNM on unit, discussed pt, abdominal pain, cramping, nausea, right side back pain, labs, and contractions. Orders received to prescribe macrobid 100 mg twice a day for seven days and take with food, discharge pt with instructions to keep next scheduled appointment, and when to return to the unit.
--- NOTE | 2024-06-08 19:32 | PC.NURSE ---
Pt discharged with instructions to take macrobid 100 mg twice a day for seven days with food, keep next scheduled appointment, and when to return to the unit, pt verbalizes understanding.
--- NOTE | 2024-06-09 14:29 | PM.OBTRLD ---
OB - Triage/Final Diagnosis Visit Information Date of evaluation: 06/08/24 Reason for evaluation: other (cramping) Comments/Additional reasons for admission: I have assessed the risk for this patient, [place] Ge, and determined that she would benefit from observation care. Evaluation Laboratory results: Laboratory Tests 06/08/24 18:26 Urine Color Yellow Urine Appearance Clear Urine pH 7.5 Ur Specific [place] 1.018 Urine Protein Negative Urine Glucose (UA) Negative Urine Ketones 1+ H Ur Blood (Man) Negative Urine Nitrate Negative Urine Bilirubin Negative Urine Urobilinogen 1.0 Ur Leukocyte Esterase 1+ H Urine RBC 0-2 Urine WBC 11-20 H Ur Squamous Epith Cells Moderate Urine Bacteria Rare Urine Casts 0-2 Vital signs: Vital Signs - 24 hr 06/08/24 18:18 06/08/24 18:19 06/08/24 18:20 Pulse Rate 91 Blood Pressure 117/63 Pulse Oximetry 100 100 Oxygen Delivery 06/08/24 18:24 06/08/24 18:29 06/08/24 18:31 Pulse Rate 91 Blood Pressure 104/60 Pulse Oximetry 100 100 Oxygen Delivery 06/08/24 18:34 06/08/24 18:39 06/08/24 18:44 Pulse Rate Blood Pressure Pulse Oximetry 100 100 100 Oxygen Delivery 06/08/24 18:49 06/08/24 18:54 06/08/24 18:56 Pulse Rate Blood Pressure Pulse Oximetry 100 100 Oxygen Delivery Room Air 06/08/24 18:59 06/08/24 19:01 06/08/24 19:04 Pulse Rate 88 Blood Pressure 107/64 Pulse Oximetry 100 100 Oxygen Delivery
== END 2024-06-08 19:32 | disposition home or self-care (01) ==
PROVIDERS: Advanced Practice Midwife; Admitting Provider Obstetrics & Gynecology; PCP Family Medicine; Visit Provider Obstetrics & Gynecology
DX: O26.893 Other specified pregnancy related conditions, third trimester (principal); R25.2 Cramp and spasm; Z3A.28 28 weeks gestation of pregnancy
CPT/HCPCS: 81001; 87086; G0378; G0379

== ENCOUNTER 2024-08-22 14:56 | Inpatient (IN) | payer OTHER, SELFPAY ==
[2024-08-21 20:00] VITALS: BMI 26.6
[2024-08-22] VITALS (130 sets, daily range): BP systolic 98–146; BP diastolic 51–104; PULSE 71–152; TEMP 36.3–36.9; O2SAT 96–100
--- NOTE | 2024-08-22 14:56 | LDADM ---
This patient, Carolina Ge, was admitted to Labor/Delivery/Recovery 106 on 08/22/24 at 14:56. Plans for labor, pain management and were discussed with patient. Patient/family oriented to hospital policies and general routines including ID bracelet, bed and alarms, visiting hours, pain management, procedures, bathroom and other care routines, personal items, smoking policy, room service/diet and guest tray routines, security routines, and visiting hours. Patient/Family are encouraged to report perceived risks to care and to ask questions if they do not understand what they are told or what they should do. See OBIX for further documentation.
[2024-08-22] MEDS: AMPICILLIN 2 GM/NS 100 ML 2 GM/100 ML BAG IVPB (16:10)
[2024-08-22] MEDS: LACTATED RINGERS 1,000 ML 125 ML IV CONT ×2 (16:10→17:35)
[2024-08-22 16:29] LABS: Basophils Percent Auto 0.2 % (0.2-1.2); Eosinophils Absolute Auto 0.1 K/mm3 (0-0.3); Eosinophils Percent Auto 0.4 % (0-4.4); Hematocrit 35.3 % (37.0-47.0); Immature Granulocyte Absolute 0.05 K/mm3 (0.00-0.031); Immature Granulocyte Percent A 0.4 % (0-0.5); Lymphocytes Absolute Auto 1.87 K/mm3 (0.9-3.2); Lymphocytes Percent Auto 15.5 % (18.3-44.2); Mean Corpuscular Hemoglobin 33.1 pg (26-34); Mean Corpuscular Volume 97.5 fl (80-100); Mean Platelet Volume 11.3 fl (7.4-10.4); Monocytes Absolute Auto 0.6 K/mm3 (0.1-0.6); Monocytes Percent Auto 5.1 % (2.6-8.5); Neutrophils Absolute Auto 9.4 K/mm3 (1.3-6.7); Neutrophils Percent Auto 78.4 % (45.5-73.1); Platelet Count Result 157 k/mm3 (150-375); Red Blood Count 3.62 M/mm3 (4.2-5.4); Red Cell Distribution Width 13.2 % (11.5-14.5)
[2024-08-22 17:09] LABS: Syphilis IgG/IgM Antibody Negative (Negative)
--- NOTE | 2024-08-22 17:13 | WPDANESEPPF ---
Anes - Initial Pre Proc Eval Procedure: labor epidural Date/Time: 08/22/24 17:13 Surgeon: Camilo Villanueva MD Pre Op Diagnosis: labor pain Pre Op Diagnosis: Labor Patient Data Age: 24 Gender: F Height: 1.57 m Weight: 66 kg Last Vital Signs Pulse 99 08/22/24 17:12 BP 127/73 08/22/24 17:12 Pulse Ox 96 08/22/24 17:11 Allergies Allergy/AdvReac Type Severity Reaction Status Date / Time vancomycin Allergy Unknown Redness of Verified 07/29/24 14:39 Skin Home Medications ?Medication ?Instructions ?Recorded ?Confirmed ?Type albuterol sulfate 90 mcg/actuation 1 puff inhalation QID PRN Wheezing 10/24/22 07/29/24 History aerosol inhaler ferrous sulfate 325 mg (65 mg 325 mg PO DAILY 10/24/22 08/22/24 History iron) tablet prenat.vits,cynthia,qyv-ovyi-vknnf 1 tablet PO DAILY 10/24/22 08/22/24 History Laboratory Tests 08/22/24 16:15 WBC 12.0 H K/mm3 (4.5-10.0) RBC 3.62 L M/mm3 (4.2-5.4) Hgb 12.0 g/dL (12.0-15.0) Hct 35.3 L % (37.0-47.0) MCV 97.5 fl (80-100) MCH 33.1 pg (26-34) MCHC 34.0 g/dl (32-36) RDW 13.2 % (11.5-14.5) Plt Count 157 k/mm3 (150-375) MPV 11.3 H fl (7.4-10.4) Immature Gran % (Auto) 0.4 % (0-0.5) Neut % (Auto) 78.4 H % (45.5-73.1) Lymph % (Auto) 15.5 L % (18.3-44.2) Ogle % (Auto) 5.1 % (2.6-8.5) Eos % (Auto) 0.4 % (0-4.4) Baso % (Auto) 0.2 % (0.2-1.2) Lymph # (Auto) 1.87 K/mm3 (0.9-3.2) Ogle # (Auto) 0.6 K/mm3 (0.1-0.6) Eos # (Auto) 0.1 K/mm3 (0-0.3) Baso # (Auto) 0.0 K/mm3 (0.0-0.1) Abs Immat Gran (auto) 0.05 H K/mm3 (0.00-0.031) Absolute Neuts (auto) 9.4 H K/mm3 (1.3-6.7) Absolute Nucleated RBC 0.000 K/mm3 (0.0-0.012) Nucleated RBC % 0.0 % (0.0-0.2) Syphilis IgG/IgM Ab Negative (Negative) HIV 1&2 Ab/P24 Ag 4thGn Pending Blood Type A Positive Antibody Screen Pending Patient hx anesthesia problems: none Family hx anesthesia problems: none Results Review: All pre-operative results and documents have been reviewed as part of the pre-operative evaluation. [facility] Family History Family History Other Patient denies significant medical history Social History Social History Smoking status: Never smoker Second hand tobacco smoke exposure: No Substance use: never Do You Feel Safe in your Home?: Yes Lack of Transportation: No Lack of Food: Never True Current Housing: I Have Housing Concerned About Future Housing: No Difficulty Paying Gas/Electric Bills: No Difficulty Paying for Meds: No Currently Unemployed: No Education: Trade/Vocational Certificate Difficulty w/ Childcare or Family Care: No Spiritual care concerns: No Anes - Eval Final PreProcedure Day of Procedure 08/22/24 17:13 Patient weight: obese ASA classification: II Anesthetic plan: proceed Anesthesia type and monitoring: regional epidural and standard monitoring Results Review: All pre-operative results and documents have been reviewed as part of the pre-operative evaluation. Informed Consent: The patient's anesthetic plan and its attendant risks and benefits were discussed with the patient/family/POA. Questions were solicited and answers provided to the satisfaction of the patient/family/POA.
[2024-08-22 17:19] LABS: HIV 1/2 Ab P24 Ag Result Negative (Negative)
--- OUTSIDE RECORDS SUMMARY | 2024-08-22 17:44 | XMS_ITS | Clinical Summary ---
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 Gender Identity Not on file Sexual Orientation Not on file Obstetrics History Last Filed Vital Signs Vital Sign Reading Time Taken Comments Blood Pressure 96/50 04/15/2022 12:51 PM UTILITY SYSTEM REPAIRER Pulse 57 04/15/2022 12:51 PM UTILITY SYSTEM REPAIRER Temperature 36.6 C (97.8 F) 04/15/2022 12:51 PM UTILITY SYSTEM REPAIRER Respiratory Rate 18 04/15/2022 12:51 PM UTILITY SYSTEM REPAIRER Oxygen Saturation 99% 04/15/2022 12:51 PM UTILITY SYSTEM REPAIRER Inhaled Oxygen Concentration - - Weight 54.5 kg (120 lb 1.6 oz) 04/15/2022 12:51 PM UTILITY SYSTEM REPAIRER Height 157.5 cm (5' 2 ) 04/15/2022 12:51 PM UTILITY SYSTEM REPAIRER Body Mass Index 21.97 04/15/2022 12:51 PM UTILITY SYSTEM REPAIRER Plan of Treatment Health Maintenance Due Date Last Done Comments Cervical Cancer Screening 1999 Depression Screening 1999 Hepatitis C Screening 1999 HPV Vaccines (2 - 2-dose series) 05/27/2014 11/24/2013 Regular Well Visit/Exam 18-64 07/23/2017 DTaP/Tdap/Td Vaccine (7 - Td or Tdap) 11/22/2020 11/22/2010, 12/13/2004, 01/01/2001, Additional history exists Influenza Vaccine (Season Ended) 2025 05/30/2021, 02/28/2019, 01/26/2017 Hepatitis B Screening Completed 01/01/2001 , 01/01/2001, 06/04/2000, Additional history exists Pneumococcal vaccine <65 Aged Out 01/01/2001, 05/2000 No longer eligible based on patient's age to complete this topic Varicella Vaccines Completed 08/05/2012, 07/30/2000 Medical Devices Implanted Type Area Diazo Technician Device Identifier Shelf Expiration Date Model / Serial / Lot Plate Short 72mm Ss 2.7/3.5mm Screw 1 Hole Varangl Taper Tip - [id number] Implanted:Qty: 1 on 10/22/2017 by Quinn Bah MD at [employer] S[employer] I [id number] / / 3.5mm Cannulated Screws Partially Threaded Implanted:Qty: 1 on 10/22/2017 by Quinn Bah MD at [employer] I 205.050 / 205.050 / [id number] 2.7mm/ 3.5mm Variable Angle Lcp Posterolateral Distal Humerus Plates Implanted:Qty: 1 on 10/22/2017 by Quinn Bah MD at [employer] I [id number] 02.117.307 / / Synthes 204.816 3.5mm 6mm 16mm 2.5mm Self Tap Small Hexagonal Socket Low Profile - [id number] Implanted:Qty: 1 on 10/22/2017 by Quinn Bah MD at [employer] I 204.816 / / Synthes 204.818 3.5mm 6mm 18mm 2.5mm Self Tap Small Hexagonal Socket Low Profile - [id number] Implanted:Qty: 1 on 10/22/2017 by Quinn Bah MD at [employer] I 204.818 / / Synthes 02.211.016 2.7mm 16mm Self Tap Lock Variable Angle Stardrive T8 Screw Bone - [id number] Implanted:Qty: 2 on 10/22/2017 by Quinn Bah MD at [employer] I 02.211.016 / / Synthes 02.211.018 2.7mm 18mm Self Tap Lock Variable Angle Stardrive T8 Screw Bone - [id number] Implanted:Qty: 2 on 10/22/2017 by Quinn Bah MD at [employer] I 02.018 / / 2.7mm Variable Angle Locking Screws, Self-Tapping, Wiht T[address] Recess Implanted:Qty: 1 on 10/22/2017 by Quinn Bah MD at [employer] I ..014 / .014 / 2.7 Mm Variable Angle Locking Screws, Self Tapping With T8 [address] Recess Implanted:Qty: 1 on 10/22/2017 by Quinn Bah MD at [employer] I .040 / 040 / Explanted Type Area Diazo Technician Device Identifier Shelf Expiration Date Model / Serial / Lot 2.7mm Variable Angle Locking Screws, Self-Tapping, Wiht T8 [address] Recess Explanted:Qty: 2 on 10/22/2017 at [employer] I .022 / 040 / [place] [address] [place] [address] [facility] [employer] [facility]/PPO Address: [address] [place] [address] [facility]/PPO Address: [address] [place] [address] Advance Directives For more information, please contact: [phone] Documents on File Type Date Recorded Patient Roller Turner Expl anation ADVANCE DIRECTIVE 07/05/2019 10:51 AM Care Teams Desktop Manager Relationship Specialty Start Date End Date Charis Stapleton MD PCP - General 01/26/17
--- OUTSIDE RECORDS SUMMARY | 2024-08-22 17:44 | XMS_ITS | Data Portability ---
Author Organization [facility] Address [address] [place] [address] [place] [address] Care Team Providers Care Metal Sprayer Protective Coating Name Role Phone LEILA BALLARD Primary Care Provider Assessment Encounter Date Assessment Date Assessment LastModified by Organization Details LastModified Time 07/25/2024 07/25/2024 Patient is ___weeks . Discussed plan. Not available 07/25/2024 17:09:03 08/08/2024 08/08/2024 Patient is ___weeks . Discussed plan. Not available 08/08/2024 14:49:03 08/16/2024 08/16/2024 Patient is ___weeks . Discussed plan. Not available 08/16/2024 11:59:52 08/22/2024 08/22/2024 Patient is ___weeks . Discussed plan. Not available 08/22/2024 14:41:50 Plan of Treatment Reminders Order Date Submit Date Provider Last Modified By Organization Details Last Modified Time Details Appointments OB ROUTINE 2024 01:30P Maryellen VILLANUEVA MD Not available Not available Not available INDUCTION 2024 05:00A Maryellen VILLANUEVA MD Not available Not available Not available Lab None recorded. Referral None recorded. Procedures None recorded. Surgeries None recorded. Imaging US, obstetric , follow-up 2024 025 [email or web address] [place], [address], [address], [place], [address], 07/11/2024 18:15:40 Medication Orders None recorded. Patient TargetsNo targets recorded. Patient InstructionsNo instructions recorded. Reason for Referral None Reported. Results Created Date Observation Date Name Description Value Unit Range Abnormal Flag Note LastModifiedBy Organization Detail LastModifiedTime 07/26/1907/25/2024 CULTU RE: GROUP B STREP SCREE N, REFLE X SUSCE PTIBI LITY result report SEE RESULT S BELOW abnormal Test: Cultu re: Group B Strep , Refle x Susce ptibi lity ([facility]/ [facility] ) Speci men Sourc e: Vagin a/Rec blade Speci men Type: Vagin al/Re ctal Speci men Date: 2024 1639 Resul t Date: 2024 1653 Resul t Statu s: Final resul t Abnor mal: Yes Resul ting Lab: [facility] [address] [facility] [address] Tel: CULTU RE ----- ----- ----- --- Posit mychal for Strep tococ cus agala ctiae (Grou p B) (Abno rmal) Clind amyci n = resis tant, eryth romyc in = resis tant. Cefaz ruben may be used for intra partu m proph ylaxi s in penic illin -kyle rgic women at low risk, and Vanco mycin is recom rubens d for women at high risk for anaph ylaxi s. Susce ptibi lity testi ng is not neces johnny for these drugs . Not Available [facility] (Lab) [address], [place], [address], 07/29/2024 17:56:51 07/12/19 25 07/11/2024 US, obste tric, follo w-up No observ ation record ed. [email or web address] [place] [address], [place], [address], 07/11/2024 18:14:45 07/12/19 25 07/11/2024 US, obste tric, follo w-up No observ ation record ed. [email or web address] [address], [place], [address], 07/11/2024 18:14:43 Result Notes None recorded. Problems Name Problem SNOMED Code Status Onset Date Resolution Date Notes Provider Name and Address Organization Details Recorded Time Pregnanc y 55979621 Completed 202211/28/2022 Angela yen [facility] 4 16:11:48 [facility] 87550904 [facility] 3 13:50:28 Pain in round ligament in pregnanc y 47858241142 637673 Completed Beti Palmer [facility], [facility] 3 13:50:28 Neuralgi a 66314919 Completed lateral foot Beti Palmer [facility], [facility] 3 13:50:28 Pregnanc y 14196168 Active 2023 Angela yen [facility] 4 16:11:48 Problem Notes None recorded. Procedures Surgical History Date Name Laterality Status Provider Name and Address Organization Details Recorded Time 03/13/20 23 Date of Last Pap Smear completed Angela Lowery [facility] 01/18/2024 16:40:21 05/04/19 20 Orthopedic Surgery completed Trudy Hines [facility] 08/04/2022 12:08:58 05/04/19 18 Orthopedic Surgery completed Trudy Hines [facility] 08/04/2022 12:08:38 05/04/19 18 [facility] 12:09:12 05/04/19 05 tonsilectomy/ad enoids completed [facility] 08/04/2022 12:08:25 Imaging Results Imaging Date Name Status LastModified by Organiz ation Details LastModified Time 07/11/2024 US, obstetric, follow-up completed [email or web address] [place] [address], [place], [address], 07/11/2024 18:14:45 07/11/2024 US, obstetric, follow-up completed [email or web address] [address], [place], [address], 07/11/2024 18:14:43 Procedure Notes None recorded. Medical Equipment None Reported. Allergies Allergen ID Allergen Name Allergen Category Reaction Reaction Severity Criticality Documentation Date Start Date Code Code System Note Provider Name and Address Organization Details Recorded Time 16176 vancomyci n medicatio n rash severe Not available 04/14/2022 41641 RxNorm Red man syndr ome Marcela Cobb [facility] 2 14:29:33 95064 vancomyci n hydrochlo ride medicatio n other moderate Not available 05/15/2022 66757 RxNorm Marcela Cobb [facility] 3 10:19:19 Medications Name Sig Start [...] and Address Organization Details Last Updated DateTime 07/11/2024 25769.9318 g 118 mm[Hg] 78 mm[Hg] [facility] 07/11/2024 17:12:07 Date Recorded Body height Body mass index (BMI) Body weight Systolic blood pressure Diastolic blood pressure Provider Name and Address Organization Details Last Updated DateTime 07/25/2024 157.48 cm 25.8 kg/m2 98938.52 g 117 mm[Hg] 80 mm[Hg] [facility] 17:10:02 Date Recorded Body height Body mass index (BMI) Body weight Systolic blood pressure Diastolic blood pressure Provider Name and Address Organization Details Last Updated DateTime 08/08/2024 157.48 cm 26 kg/m2 15412.12 g 124 mm[Hg] 87 mm[Hg] [facility] 14:51:03 Date Recorded Body height Body mass index (BMI) Body weight Systolic blood pressure Diastolic blood pressure Provider Name and Address Organization Details Last Updated DateTime 08/16/2024 157.48 cm 26.5 kg/m2 76683.89 g 127 mm[Hg] 85 mm[Hg] [facility] 12:00:27 Date Recorded Body height Body mass index (BMI) Body weight Systolic blood pressure Diastolic blood pressure Provider Name and Address Organization Details Last Updated DateTime 08/22/2024 157.48 cm 26.3 kg/m2 32326.3 g 113 mm[Hg] 73 mm[Hg] [facility] 14:43:57 Social History Question Answer Notes LastModified by Organizat ion Details LastModified Time Tobacco Smoking Status Never Smoker Ena Sorensen [facility] 03/13/2023 13:53:57 Do You Have An Advance Directive? No [email or web address] Information n ot available 08/04/2022 What Is Your Level Of Alcohol Consumption? Occasional [email or web address] Information not available 08/04/2022 If You Are , What Was Your Level Of Alcohol Consumption Prior To ? Occasional Information not available 03/13/2023 How Many Years Have You Consumed Alcohol? 1 [email or web address] Information not available 08/04/2022 Are You Blind Or Do You Have Difficulty Seeing? No Information n ot available 05/15/2022 What Is Your Level Of Caffeine Consumption? Occasional [email or web address] Information not available 08/04/2022 In The 14 [...] Do You Have Serious Difficulty Hearing? No [email or web address] Information not available 08/04/2022 What Type Of Diet Are You Following? REGULAR Information n ot available 05/15/2022 What Is The Highest Grade Or Level Of School You Have Completed Or The Highest Degree You Have Received? 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 [id number] Information not available 05/15/2022 Do You Use Any Illicit Or Recreational Drugs? No Information not available 05/15/2022 Do You Use Sunscreen Routinely? Yes Information not available 05/15/2022 Have You Used IV Drugs? No Information not available 05/15/2022 Sex: Unknown Functional Status Question Answer Note LastModified by Organizat ion Details LastModified Time Do you have difficulty walking or climbing stairs? No [email or web address] Information not available 03/13/2023 Are you able to walk? [email or web address] Information not available 05/15/2022 Are you able to care for yourself? Yes [email or web address] Information not available 03/13/2023 Do you have difficulty dressing or bathing? No [email or web address] Information not available 03/13/2023 What is your exercise level? Occasional [email or web address] Information not available 08/04/2022 Mental Status None recorded. Family History Relationship Description Onset Age of this Age Resolved Age Notes LastModified by Organization Details LastModified Time Father No current problems or disability [email or web address] Not available 03/13 14:02:14 Mother No current problems or disability [email or web address] Not available 03/13 14:02:14 Medical History Condition Response Allergies (Food, seasonal, environmental ) Y Other Y Breast Cancer N Drug/Latex Allergies/Reactions N Blood Transfusion N Lung Disease N Dermatologic Disorders N Defects or Inherited Disease N Breast [...] SNOMED-CT Code Diagnosis ICD10 Code Diagnosis Note [id number] Mae Madsen [place] [address] [address] 04/14/2022 11:55:25 04/14/2022 12:48:52 [id number] Camlio Villanueva MD [place] [address] [address] 04/14/2022 11:57:14 04/14/2022 15:10:00 Amenorrhea 94427444 N91.2 this patient is a 21-year-ol d [...] ce. More than 50% was counseling . [id number] Sondra Arrieta [place] [address] [address] 05/15/2022 09:27:46 05/15/2022 09:55:36 screening 536755423 Z36.82 [id number] Camilo Villanueva MD [place] [address],[place] [address] 05/15/2022 09:28:29 05/15/2022 11:11:23 Routine care 339306932 Z34.81 [id number] [facility] [address],[place] [address] 06/09/2022 16:26:28 06/09/2022 17:18:02 [id number] Camilo Villanueva MD [place] [address],[place] [address] 06/09/2022 16:27:10 06/09/2022 17:46:10 Routine care 779182557 Z34.81 [id number] [facility] [address] [address] 07/07/2022 11:59:35 07/07/2022 14:28:33 screening for malformation 560708071 Z36.3 [id number] Camilo Villanueva MD [place] [address],[place] [address] 07/07/2022 11:59:57 07/07/2022 14:50:36 Routine care 540095439 Z34.81 [id number] [facility] [address],[place] [address] 07/28/2022 14:24:12 07/28/2022 15:13:53 Reduced movement 606554833 O36.8120 O99.891 Z3A.23 [id number] Irene Garciajen [place] [address],[place] [address] 08/04/2022 11:58:10 08/05/2022 18:01:18 Routine care 303703932 Z34.92 [id number] Camilo Villanueva MD [place] [address],[place] [address] 09/05/2022 11:46:03 09/05/2022 12:27:42 Routine care 942443993 Z34.81 [id number] Mae Madsen [place] [address],[place] [address] 09/09/2022 13:50:01 09/09/2022 14:36:32 Uterine size for dates discrepancy 119994538 O26.843 Z3A.29 [id number] Camilo Villanueva MD [place] [address],[place] [address] 09/15/2022 14:46:05 09/15/2022 15:36:49 Routine care 928411606 Z34.81 [id number] Camilo Villanueva MD [place] [address],[place] [address] 10/02/2022 14:56:27 10/02/2022 15:54:10 Routine care 115800761 Z34.81 [id number] Sondraeleazar Brittonson [place] [address],[place] [address] 10/16/2022 11:09:36 10/16/2022 13:59:09 Uterine size for dates discrepancy 295450544 O26.843 Z3A.34 [id number] Camilo Villanueva MD [place] [address],[place] [address] 10/16/2022 11:10:10 10/16/2022 13:58:52 Routine care 873144724 Z34.81 [id number] Camilo Villanueva MD [place] [address],[place] [address] 10/29/2022 15:18:27 10/29/2022 16:19:18 Routine care 215221774 Z34.81 [id number] Camilo Villanueva MD [place] [address],[place] [address] 11/06/2022 11:02:33 11/06/2022 12:11:47 Routine care 255201028 Z34.81 [id number] MD Lazaro López [address],[place] [address] 11/13/2022 11:55:33 11/13/2022 13:15:38 Routine care 283744703 Z34.81 [id number] Camilo Villanueva MD [place] [address],[place] [address] 11/21/2022 11:55:21 11/21/2022 14:26:36 Routine care 542498827 Z34.81 [id number] Camilo Villanueva MD [place] [address],[place] [address] 12/25/2022 15:05:41 12/25/2022 15:40:46 care 870443690 Z39.2 [id number] Camilo Villanueva MD [place] [address],[place] [address] 03/13/2023 13:53:30 03/13/2023 14:23:44 Gynecologic examination 98258303 Z01.419 Annual gynecologi cynthia exam performed. Patient [...] DEXA scan- Pap smear- laboratory evaluation - [id number] Camilo Villanueva MD [place] [address],[place] [address] 01/18/2024 15:47:36 01/18/2024 17:35:27 Amenorrhea 69026513 N91.2 this patient is a 23-year-ol d [...] begin routine care at her next visit. [id number] [facility] [address],[place] [address] 01/18/2024 15:48:07 01/18/2024 16:12:53 [id number] [facility] [address],[place] [address] 02/15/2024 15:23:56 02/15/2024 16:05:49 screening 637662920 Z36.82 Z3A.12 [id number] Camilo Villanueva MD [place] [address],[place] [address] 02/15/2024 15:25:17 02/15/2024 16:52:00 Routine care 797237905 Z34.81 [id number] Camilo Villanueva MD [place] [address],[place] [address] 03/14/2024 16:01:18 03/14/2024 16:46:47 Routine care 059095635 Z34.81 [id number] [facility] [address],[place] [address] 04/11/2024 16:04:14 04/11/2024 17:18:16 screening for malformation 954690634 Z36.3 Z3A.20 [id number] Camilo Villanueva MD [place] [address],[place] [address] 04/11/2024 16:05:00 04/11/2024 18:02:15 Routine care 547381415 Z34.81 [id number] MD Lazaro López [address],[place] [address] 05/18/2024 15:06:22 05/18/2024 15:45:49 Routine care 960813629 Z34.81 [id number] MD Lazaro López [address],[place] [address] 06/06/2024 10:36:56 06/06/2024 12:01:47 Routine care 438160197 Z34.81 [id number] Camilo Villanueva MD [place] [address],[place] [address] 06/22/2024 16:35:31 06/22/2024 17:20:32 Routine care 410941498 Z34.81 [id number] Mae Madsen [place] [address],[place] [address] 07/11/2024 16:38:40 07/11/2024 17:09:37 Uterine size for dates discrepancy 816303245 O26.843 Z3A.33 [id number] Camilo Villanueva MD [place] [address],[place] [address] 07/11/2024 16:39:15 07/11/2024 17:37:44 Routine care 093811821 Z34.81 [id number] MD Lazaro López [address],[place] [address] 07/25/2024 17:01:30 07/25/2024 17:39:14 Routine care 628531016 Z34.81 [id number] MD Lazaro López [address],[place] [address] 08/08/2024 14:39:36 08/08/2024 15:42:04 Routine care 914642142 Z34.81 [id number] MD Lazaro López [address],[place] [address] 08/16/2024 11:32:23 08/16/2024 12:26:57 Routine care 988425374 Z34.81 [id number] MD Lazaro López [address],[place] [address] 08/22/2024 14:30:30 08/22/2024 15:24:46 care status 405662669 Z34.83 Health Concerns Section Related Observation LastModified by Organization Detai ls LastModified Time None Recorded Concern Status LastModified by Organization Details LastModified Time None Recorded Advance Directives Directive N: Payers Encounter Date Sequence Insurance Name Policy Number Policy Villanueva Covered Member ID Villanueva Member ID Guarantor Name 07/11/2024 1 [facility] Jamey Joo [id number] [place] 07/25/2024 1 [facility] Jamey Joo [id number] [place] 08/08/2024 1 [facility] Jamey Joo [id number] [place] 08/16/2024 1 [facility] Jamey Joo [id number] [place] 08/22/2024 1 [facility] Jamey Joo [id number] [place] OBGyn Episode Ob Episode Information Episode Created Date Number of Fetuses Patient Bloodtype Patient rh Status Prepregnancy Weight lbs Domestic Partner Domestic Partner Phone Father Name Poultry Picker Status 05/15/19 23 1 A Positive 121 CLOSED Fetus Data First Name Last Name Admitted to NICU Weight (g) Sex Living Outcome Pediatric Complications Fetus ID Race Codes Race Delivery Type 3203.49 35 F true Full Term [id number] Vaginal Delivery Problems Problem Notes Problem Name Start Date End Date Resolution Snomed Code Not e Neuralgia 68926954 lateral fo ot Sciatica 39992085 Pain in round ligament in [id number] Butch Calculation Initial Butch Date Initial Exam [...] Gestation 0 [email or web address] 05/15/2022 11/24/19 23 0 Pre- Flowsheet Flowsheet Date 05/15/2022 Valladares Score Blood Edema Fundus Height Fundus Units Glucose Ketones Leukocytes Nitrite Labor Signs Protein Cervic Dilation Cervic Effacement Cervic Station 12 Type Weight in lbs Pre/Post Dialysis Refused Weight 119.674410339666 BP Diastolic BP Location Tested BP Systolic [...] Weight in lbs Pre/Post Dialysis Refused Weight 120.837110815177 BP Diastolic BP Location Tested BP Systolic [...] Weight in lbs Pre/Post Dialysis Refused Weight 125.569761742345 BP Diastolic BP Location Tested BP Systolic [...] Weight in lbs Pre/Post Dialysis Refused Weight 130.319946170845 BP Diastolic BP Location Tested BP Systolic [...] Weight in lbs Pre/Post Dialysis Refused Weight 135.35087967488 BP Diastolic BP Location Tested BP Systolic [...] Weight in lbs Pre/Post Dialysis Refused Weight 135.66499335701 BP Diastolic BP Location Tested BP Systolic [...] Weight in lbs Pre/Post Dialysis Refused Weight 141.985882998651 BP Diastolic BP Location Tested BP Systolic [...] Weight in lbs Pre/Post Dialysis Refused Weight 141.198572901977 BP Diastolic BP Location Tested BP Systolic [...] Weight in lbs Pre/Post Dialysis Refused Weight 144.641567771904 BP Diastolic BP Location Tested BP Systolic [...] Weight in lbs Pre/Post Dialysis Refused Weight 145.2846876588 BP Diastolic BP Location Tested BP Systolic BP Type 76 R arm 111 sitting Fetus Heart Rate Present Fetus Movement Comments Flowsheet Date 11/13/2022 Valladares Score Blood Edema Fundus Height Fundus Units Glucose Ketones Leukocytes Nitrite Labor Signs Protein Cervic Dilation Cervic Effacement Cervic Station 38 none trace Type Weight in lbs Pre/Post Dialysis Refused Weight 145.3886846577 BP Diastolic BP Location Tested BP Systolic [...] Weight in lbs Pre/Post Dialysis Refused Weight 145.2143624045 BP Diastolic BP Location Tested BP Systolic [...] Estim ated Date of Delivery false Thalassemia (Latvian, Chinese, Mediterranean, Or Background): MCV < 80 false Neural Tube Defect (Meningomyelocele, Spina Bifi da, Or Anencephaly) false Congenital Heart Defect false Down Syndrome false Aaron-Sachs (eg, Hinduism, Cajun, Macedonian-[place]) f alse Irina Disease false Sickle Cell Disease Or Trait () false Hemophilia Or Other Blood Disorders false Muscular Dystrophy false Cystic Fibrosis false Tyndall's Chorea false Intellectual Disability/Autism false If Yes, [...] Comments 3 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 false Camilo Villanueva MD precip labor, RLP, sciatica Discharge Information Feeding Method Contraceptive Method Maternal HG B and HCT Levels Ob Episode Information Episode Created Date Number of Fetuses Patient Bloodtype Patient rh Status Prepregnancy Weight lbs Domestic Partner Domestic Partner Phone Father Name Poultry Picker Status 04/14/20 22 1 CLOSED Fetus Data First Name Last Name Admitted to NICU Weight (g) Sex Living Outcome Pediatric Complications Fetus ID Race Codes Race Delivery Type , Induced 95597 Butch Calculation Initial Butch Date Initial Exam [...] Domestic Partner Domestic Partner Phone Father Name Poultry Picker Status 02/15/20 24 1 A Positive OPEN Fetus Data First Name Last Name Admitted to NICU Weight (g) Sex Living Outcome Pediatric Complications Fetus ID Race Codes Race Delivery Type 76940 Butch Calculation Initial Butch Date Initial Exam [...] Gestation 0 [email or web address] 02/15/2024 08/28/19 25 0 Pre- Flowsheet Flowsheet Date 02/15/2024 Valladares Score Blood Edema Fundus Height Fundus Units Glucose Ketones Leukocytes Nitrite Labor Signs Protein Cervic Dilation Cervic Effacement Cervic Station Type Weight in lbs Pre/Post Dialysis Refused Weight 120.041895083043 BP Diastolic BP Location Tested BP Systolic [...] Type Weight in lbs Pre/Post Dialysis Refused 120.210200581052 BP Diastolic BP Location Tested BP Systolic [...] Type Weight in lbs Pre/Post Dialysis Refused 124.099011556810 BP Diastolic BP Location Tested BP Systolic [...] Type Weight in lbs Pre/Post Dialysis Refused 130.828872375259 BP Diastolic BP Location Tested BP Systolic [...] Type Weight in lbs Pre/Post Dialysis Refused 133.403334657770 BP Diastolic BP Location Tested BP Systolic BP Type 77 L arm 113 sitting Fetus Heart Rate Present A 147 Fetus Movement A Yes Comments no complaints, no problems, routine care, no contractions, no vaginal bleeding, no loss of fluid, no cramping Flowsheet Date 06/22/2024 Valladares Score Blood Edema Fundus Height Fundus Units Glucose Ketones Leukocytes Nitrite Labor Signs Protein Cervic Dilation Cervic Effacement Cervic Station 27 cm Type Weight in lbs Pre/Post Dialysis Refused 136.925645231014 BP Diastolic BP Location Tested BP Systolic BP Type 70 L arm 113 sitting Fetus Heart Rate Present A 143 Present Fetus Movement A Yes Comments no complaints, no problems, routine care, no contractions, no vaginal bleeding, no loss of fluid, no cramping, size dates discrepancy, to get ultrasound. Flowsheet Date 07/11/2024 Valladares Score Blood Edema Fundus Height Fundus Units Glucose Ketones Leukocytes Nitrite Labor Signs Protein Cervic Dilation Cervic Effacement Cervic Station Type Weight in lbs Pre/Post Dialysis Refused BP Diastolic BP Location Tested BP Systolic BP Type Fetus Heart Rate Present Fetus Movement Comments Flowsheet Date 07/11/2024 Valladares Score Blood Edema Fundus Height Fundus Units Glucose Ketones Leukocytes Nitrite Labor Signs Protein Cervic Dilation Cervic Effacement Cervic Station 33 cm Type Weight in lbs Pre/Post Dialysis Refused 140.317742063750 BP Diastolic BP Location Tested BP Systolic BP Type 78 L arm 118 sitting Fetus Heart Rate Present A 145 Fetus Movement A Yes Comments no complaints, no problems, routine care, no contractions, no vaginal bleeding, no loss of fluid, no cramping Flowsheet Date 07/25/2024 Valladares Score Blood Edema Fundus Height Fundus Units Glucose Ketones Leukocytes Nitrite Labor Signs Protein Cervic Dilation Cervic Effacement Cervic Station Type Weight in lbs Pre/Post Dialysis Refused Weight 141.494768856083 BP Diastolic BP Location Tested BP Systolic BP Type 80 L arm 117 sitting Fetus Heart Rate Present A 138 Present Fetus Movement A Yes Comments no complaints, no problems, routine care, no contractions, no vaginal bleeding, no loss of fluid, no cramping Flowsheet Date 08/08/2024 Valladares Score Blood Edema Fundus Height Fundus Units Glucose Ketones Leukocytes Nitrite Labor Signs Protein Cervic Dilation Cervic Effacement Cervic Station Type Weight in lbs Pre/Post Dialysis Refused Weight 142.003232274874 BP Diastolic BP Location Tested BP Systolic BP Type 87 L arm 124 sitting Fetus Heart Rate Present A 138 Present Fetus Movement A Yes Comments no complaints, no problems, routine care, no contractions, no vaginal bleeding, no loss of fluid, no cramping Flowsheet Date 08/16/2024 Valladares Score Blood Edema Fundus Height Fundus Units Glucose Ketones Leukocytes Nitrite Labor Signs Protein Cervic Dilation Cervic Effacement Cervic Station 3cm 50% Type Weight in lbs Pre/Post Dialysis Refused Weight 145.899194542069 BP Diastolic BP Location Tested BP Systolic BP Type 85 L arm 127 sitting Fetus Heart Rate Present A 140 Present Fetus Movement A Yes Comments no complaints, no problems, routine care, no contractions, no vaginal bleeding, no loss of fluid, no cramping Flowsheet Date 08/22/2024 Valladares Score Blood Edema Fundus Height Fundus Units Glucose Ketones Leukocytes Nitrite Labor Signs Protein Cervic Dilation Cervic Effacement Cervic Station 3cm 70% -2 Type Weight in lbs Pre/Post Dialysis Refused Weight 144.45736936311 BP Diastolic BP Location Tested BP Systolic BP Type 73 L arm 113 sitting Fetus Heart Rate Present A 132 Present Fetus Movement A Yes Comments intermittent contractions, g ood movement, reactive NST, fast labor, given recommendations on coming in to rule out labor. Menstrual History Last Menstrual Date Menses Monthly [...]
--- OUTSIDE RECORDS SUMMARY | 2024-08-22 17:44 | XMS_ITS | Referral Summary ---
Author Organization [facility] Healthcare Address [address] [place] [address] Care Team Providers Care Retail Assistant Manager Name Role Phone Charis Stapleton MD [...] (03/30/2018): Added automatically from request for surgery [id number] Flexion contracture of elbow, left 03/30/2018 Overview (03/30/2018): Added automatically from request for surgery [id number] Closed fracture of left distal humerus 8 Overview (10/21/2017): Added automatically from request for surgery [id number] Acne 12/01/2011 Social History Tobacco Use Types Packs/Day Years Used Date Smoking Tobacco: Never Smokeless Tobacco: Never Alcohol Use Standard Drinks/Week Comments No 0 (1 standard drink = 0.6 oz pur e alcohol) Comments No Sex and Gender Information Value Date Recorded Sex Assigned at Not on file Legal Sex Female 7:52 PM BIOINFORMATICS ENGINEER Gender Identity Not on file Sexual Orientation Not on file Last Filed Vital Signs Vital Sign Reading Time Taken Comments Blood Pressure 96/50 04/15/2022 12:51 PM BIOINFORMATICS ENGINEER Pulse 57 04/15/2022 12:51 PM BIOINFORMATICS ENGINEER Temperature 36.6 C (97.8 F) 04/15/2022 12:51 PM BIOINFORMATICS ENGINEER Respiratory Rate 18 04/15/2022 12:51 PM BIOINFORMATICS ENGINEER Oxygen Saturation 99% 04/15/2022 12:51 PM BIOINFORMATICS ENGINEER Inhaled Oxygen Concentration - - Weight 54.5 kg (120 lb 1.6 oz) 04/15/2022 12:51 PM BIOINFORMATICS ENGINEER Height 157.5 cm (5' 2 ) 04/15/2022 12:51 PM BIOINFORMATICS ENGINEER Body Mass Index 21.97 04/15/2022 12:51 PM BIOINFORMATICS ENGINEER Plan of Treatment Not on file Medical Devices Implanted Type Area Mold Yard Worker Device Identifier Shelf Expiration Date Model / Serial / Lot Plate Short 72mm Ss 2.7/3.5mm Screw 1 Hole Varangl Taper Tip - [id number] Implanted:Qty: 1 on 10/22/2017 by Quinn Bah MD at [facility] Synthes I [id number] / / 3.5mm Cannulated Screws Partially Threaded Implanted:Qty: 1 on 10/22/2017 by Quinn Bah MD at [facility] Synthes I 205.050 / 205.050 / [id number] 2.7mm/ 3.5mm Variable Angle Lcp Posterolateral Distal Humerus Plates Implanted:Qty: 1 on 10/22/2017 by Quinn Bah MD at [facility] Synthes I [id number] [id number] / / Synthes 204.816 3.5mm 6mm 16mm 2.5mm Self Tap Small Hexagonal Socket Low Profile - [id number] Implanted:Qty: 1 on 10/22/2017 by Quinn Bah MD at [facility] Synthes I 204.816 / / Synthes 204.818 3.5mm 6mm 18mm 2.5mm Self Tap Small Hexagonal Socket Low Profile - [id number] Implanted:Qty: 1 on 10/22/2017 by Quinn Bah MD at [facility] Synthes I 204.818 / / Synthes 211.016 2.7mm 16mm Self Tap Lock Variable Angle Stardrive T8 Screw Bone - [id number] Implanted:Qty: 2 on 10/22/2017 by Quinn Bah MD at [facility] Synthes I ..016 / / Synthes .018 2.7mm 18mm Self Tap Lock Variable Angle Stardrive T8 Screw Bone - [id number] Implanted:Qty: 2 on 10/22/2017 by Quinn Bah MD at [facility] Synthes I .018 / / 2.7mm Variable Angle Locking Screws, Self-Tapping, Wiht T[address] Recess Implanted:Qty: 1 on 10/22/2017 by Quinn Bah MD at [facility] Synthes I ..014 / 014 / 2.7 Mm Variable Angle Locking Screws, Self Tapping With T8 [address] Recess Implanted:Qty: 1 on 10/22/2017 by Quinn Bah MD at [facility] Synthes I ..040 / .040 / Explanted Type Area Mold Yard Worker Device Identifier Shelf Expiration Date Model / Serial / Lot 2.7mm Variable Angle Locking Screws, Self-Tapping, Wiht T8 [address] Recess Explanted:Qty: 2 on 10/22/2017 at [facility] Synthes I 02..022 / .040 / Insurance [employer] [facility] H[facility]/PPO Address: [address] [address] [place] [address] [facility] H[facility]/PPO Address: [facility] [address] [address] [phone] Advance Directives For more information, please contact: [phone] Documents on File Type Date Recorded Patient Bag Shop Worker Expl anation ADVANCE DIRECTIVE 07/05/2019 10:51 AM Care Teams Retail Assistant Manager Relationship Specialty Start Date End Date Charis Stapleton MD PCP - General 01/26/17
--- OUTSIDE RECORDS SUMMARY | 2024-08-22 17:44 | XMS_ITS | Clinical Summary ---
Author Organization [facility] Address [address] [place] [address] Care Team Providers Care Ship Runner Name Role Phone Petr Dee MD Primary Care Provider [phone] Chasidy Alfred APRN, JOB BOSS Unavailable [phone] Allergies Active Allergy Reactions Criticality Noted Date [...] on file Legal Sex Female 11:53 AM DATA CONVERSION OPERATOR Gender Identity Female 03/19/2023 3:33 PM DATA CONVERSION OPERATOR Sexual Orientation Not on file Last Filed Vital Signs Vital Sign Reading Time Taken Comments Blood Pressure 92/74 03/19/2023 11:01 AM DATA CONVERSION OPERATOR Pulse 98 03/19/2023 11:01 AM DATA CONVERSION OPERATOR Temperature 36.2 C (97.1 F) 03/19/2023 11:01 AM DATA CONVERSION OPERATOR Respiratory Rate 16 03/19/2023 11:01 AM DATA CONVERSION OPERATOR Oxygen Saturation 97% 03/19/2023 11:01 AM DATA CONVERSION OPERATOR Inhaled Oxygen Concentration - - Weight 54.4 kg (120 lb) 03/19/2023 11:01 AM DATA CONVERSION OPERATOR Height 157.5 cm (5' 2 ) 03/19/2023 11:01 AM DATA CONVERSION OPERATOR Body Mass Index 21.95 03/19/2023 11:01 AM DATA CONVERSION OPERATOR Plan of Treatment Health Maintenance Due Date Last Done Comments Hepatitis C Virus (HCV) Screening 1999 SARS-COV-2 Immunization ( season) 2024 04/24/2021, 10/07/2020, 09/16/2020 Pap Smear 05/23/2024 05/23/2021 Influenza Immunization (Season Ended) 2025 05/30/2021, 02/28/2019, 01/26/2017 DTaP/Tdap/Td Immunization (8 - Td or Tdap) [...] 08/05/2012 Meningococcal Immunization (ACWY) Completed 01/19/2017, 11/22/2010 Rotavirus Immunization Aged Out No lo nger eligible based on patient's age to complete this topic Insurance Care Teams Ship Runner Relationship Specialty Start Date End Date Petr Dee MD PCP - General Family Medicine 05/30/21 Chasidy Alfred, CDS SALES ADVISOR, JOB BOSS [address] [place] [address] Obstetrics & Gynecology 05/30/21
--- OUTSIDE RECORDS SUMMARY | 2024-08-22 17:44 | XMS_ITS | Continuity of Care Document ---
Author Organization [facility] Address [address] [place] [address] Care Team Providers Care Jet Dyeing Machine Operator Name Role Phone LEILA BALLARD Primary Care Provider [phone] Assessment Encounter Date Assessment Date Assessment LastModified by Organization Details LastModified Time 08/22/2024 08/22/2024 Patient is ___weeks . Discussed plan. [email or web address] Not available 08/22/2024 14:41:50 Plan of Treatment Reminders Order Date Submit Date Provider Last Modified By Organization Details Last Modified Time Details Appointments OB ROUTINE 2024 01:30P Maryellen NORIEGA MD Not available Not available Not available INDUCTION 2024 05:00A Maryellen NORIEGA MD Not available Not available Not available Lab None recorded. Referral None recorded. Procedures None recorded. Surgeries None recorded. Imaging None recorded. Medication Orders None recorded. Patient TargetsNo targets recorded. Patient InstructionsNo instructions recorded. Reason for Referral None Reported. Results Created Date Observation Date Name Description Value Unit Range Abnormal Flag Note LastModifiedBy Organization Detail LastModifiedTime 02/15/2002/15/2024 US, obste tric, nucha l trans lucen cy No observ ation record ed. [email or web address] [facility] [address], [place], [address], 02/15/2024 17:20:20 02/15/2002/15/2024 US, obste tric, 1st trime ster No observ ation record ed. [email or web address] [facility] [address], [place], [address], 02/15/2024 17:20:29 02/15/20 24 02/15/2024 US, obste tric, follo w-up No observ ation record ed. [email or web address] [address], [place], [address], 02/16/2024 09:25:14 04/11/20 24 04/11/2024 US, obste tric, 2nd or 3rd trime ster No observ ation record ed. [email or web address] [facility] [address], [place], [address], 04/11/2024 18:06:33 04/11/20 24 04/11/2024 US, obste tric, 2nd or 3rd trime ster No observ ation record ed. [email or web address] [address], [place], [address], 04/11/2024 21:24:00 07/12/19 25 07/11/2024 US, obste tric, follo w-up No observ ation record ed. [email or web address] [facility] [address], [place], [address], 07/11/2024 18:14:45 07/12/19 25 07/11/2024 US, obste tric, follo w-up No observ ation record ed. [email or web address] [address], [place], [address], 07/11/2024 18:14:43 Result Notes None recorded. Problems Name Problem SNOMED Code Status Onset Date Resolution Date Notes Provider Name and Address Organization Details Recorded Time Pregnanc y 88776213 Completed 202211/28/2022 Angela yen [facility] 4 16:11:48 Sciatica 13697363 Completed Beti yen [facility] 3 13:50:28 Pain in round ligament in pregnanc y [id number] 871694 Completed Beti [facility], [facility] 3 13:50:28 Neuralgi a 30804232 Completed lateral foot Beti [facility], [facility] 3 13:50:28 Pregnanc y 41669053 Active 2023 Angela Lowery [facility] 4 16:11:48 Problem Notes None recorded. Procedures Surgical History Date Name Laterality Status Provider Name and Address Organization Details Recorded Time 03/13/20 23 Date of Last Pap Smear completed Angela Sebastián [facility] 01/18/2024 16:40:21 05/04/19 20 Orthopedic Surgery completed [facility] 08/04/2022 12:08:58 05/04/19 18 Orthopedic Surgery completed [facility] 08/04/2022 12:08:38 05/04/19 18 termination of completed [facility] 08/04/2022 12:09:12 05/04/19 05 tonsilectomy/ad enoids completed [facility] 08/04/2022 12:08:25 Imaging Results None recorded. Procedure Notes None recorded. Medical Equipment None Reported. Allergies Allergen ID Allergen Name Allergen Category Reaction Reaction Severity Criticality Documentation Date Start Date Code Code System Note Provider Name and Address Organization Details Recorded Time 37242 vancomyci n medicatio n rash severe Not available 04/14/2022 58753 RxNorm Red man syndr ome Marcela Cobb [facility] 2 14:29:33 16180 vancomyci n hydrochlo ride medicatio n other moderate Not available 05/15/2022 71315 RxNorm Marcela Cobb [facility] 3 10:19:19 Medications Name Sig Start [...] Available Not Available Vitals Date Recorded Body height Body mass index (BMI) Body weight Systolic blood pressure Diastolic blood pressure Provider Name and Address Organization Details Last Updated DateTime 08/22/2024 157.48 cm 26.3 kg/m2 47835.3 g 113 mm[Hg] 73 mm[Hg] Angela Lowery [facility] 5 14:43:57 Social History Question Answer Notes LastModified by Organizat ion Details LastModified Time Tobacco Smoking Status Never Smoker Ena yen, [facility] 03/13/2023 13:53:57 Do You Have An Advance Directive? No [email or web address] Information n ot available 08/04/2022 What Is Your Level Of Alcohol Consumption? Occasional [email or web address] Information not available 08/04/2022 If You Are , What Was Your Level Of Alcohol Consumption Prior To ? Occasional [email or web address] Information not available 03/13/2023 How Many Years Have You Consumed Alcohol? 1 [email or web address] Information not available 08/04/2022 Are You Blind Or Do You Have Difficulty Seeing? No Information n ot available 05/15/2022 What Is Your Level Of Caffeine Consumption? Occasional [email or web address] Information not available 08/04/2022 In The 14 [...] Do You Have Serious Difficulty Hearing? No [email or web address] Information not available 08/04/2022 What Type Of Diet Are You Following? REGULAR Information n ot available 05/15/2022 What Is The Highest Grade Or Level Of School You Have Completed Or The Highest Degree You Have Received? 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 [id number] Information not available 05/15/2022 Do You Use Any Illicit Or Recreational Drugs? No Information not available 05/15/2022 Do You Use Sunscreen Routinely? Yes Information not available 05/15/2022 Have You Used IV Drugs? No Information not available 05/15/2022 Sex: Unknown Functional Status Question Answer Note LastModified by Organizat ion Details LastModified Time Do you have difficulty walking or climbing stairs? No [email or web address] Information not available 03/13/2023 Are you able to walk? [email or web address] Information not available 05/15/2022 Are you able to care for yourself? Yes [email or web address] Information not available 03/13/2023 Do you have difficulty dressing or bathing? No [email or web address] Information not available 03/13/2023 What is your exercise level? Occasional [email or web address] Information not available 08/04/2022 Mental Status None [...] N Drug/Latex Allergies/Reactions N Blood Transfusion N Dermatologic Disorders N Lung Disease N [...] SNOMED-CT Code Diagnosis ICD10 Code Diagnosis Note [id number] Camilo Noriega MD [facility] [address] [address] 07/25/2024 17:01:30 07/25/2024 17:39:14 Routine care 736969449 Z34.81 [id number] Camilo Noriega MD [facility] [address] [address] 08/08/2024 14:39:36 08/08/2024 15:42:04 Routine care 868249904 Z34.81 [id number] Camilo Noriega MD [facility] [address] [address] 08/16/2024 11:32:23 08/16/2024 12:26:57 Routine care 588963967 Z34.81 [id number] Camilo Noriega MD [facility] [address] [address] 08/22/2024 14:30:30 08/22/2024 15:24:46 care status 263654109 Z34.83 Health Concerns Section Related Observation LastModified by Organization Detai ls LastModified Time None Recorded Concern Status LastModified by Organization Details LastModified Time None Recorded Payers Encounter Date Sequence Insurance Name Policy Number Policy Villanueva Covered Member ID Villanueva Member ID Guarantor Name 08/22/2024 1 [facility] Joo [id number] [place] Ge OBGyn Episode Ob Episode Information Episode Created Date Number of Fetuses Patient Bloodtype Patient rh Status Prepregnancy Weight lbs Domestic Partner Domestic Partner Phone Father Name Biscuit Packer Status 02/15/20 24 1 A Positive OPEN Fetus Data First Name Last Name Admitted to NICU Weight (g) Sex Living Outcome Pediatric Complications Fetus ID Race Codes Race Delivery Type [id number] Butch Calculation Initial Butch Date Initial Exam [...] Weight in lbs Pre/Post Dialysis Refused Weight 120.328187707459 BP Diastolic BP Location Tested BP Systolic [...] Type Weight in lbs Pre/Post Dialysis Refused 120.641179217382 BP Diastolic BP Location Tested BP Systolic [...] Type Weight in lbs Pre/Post Dialysis Refused 124.558890331960 BP Diastolic BP Location Tested BP Systolic [...] Type Weight in lbs Pre/Post Dialysis Refused 130.547733841302 BP Diastolic BP Location Tested BP Systolic [...] Type Weight in lbs Pre/Post Dialysis Refused 133.633670436218 BP Diastolic BP Location Tested BP Systolic [...] Type Weight in lbs Pre/Post Dialysis Refused 136.125307113455 BP Diastolic BP Location Tested BP Systolic [...] Type Weight in lbs Pre/Post Dialysis Refused 140.191732364101 BP Diastolic BP Location Tested BP Systolic [...] Weight in lbs Pre/Post Dialysis Refused Weight 141.538553849336 BP Diastolic BP Location Tested BP Systolic [...] Weight in lbs Pre/Post Dialysis Refused Weight 142.970971439828 BP Diastolic BP Location Tested BP Systolic [...] Weight in lbs Pre/Post Dialysis Refused Weight 145.402533269209 BP Diastolic BP Location Tested BP Systolic [...] Weight in lbs Pre/Post Dialysis Refused Weight 144.17904587891 BP Diastolic BP Location Tested BP Systolic [...]
[2024-08-22] MEDS: FAMOTIDINE 20 MG/2 ML VIAL IV PUSH (18:33)
[2024-08-22] MEDS: AMPICILLIN 1 GM/NS 50 ML 1 GM/50 ML BAG IVPB (19:53)
--- NOTE | 2024-08-22 20:50 | WPDHPUPDATE1 ---
History and Physical Update Update Date/Time: 08/22/24 20:50 24-year-old multiparous female at 39 weeks gestation who presented in labor. She has labored to a cervical dilation of 7. Artificial rupture membranes was performed. Clear fluid. 7 cm/80%/-1. Reassuring status. Expected management of labor. History and Physical has been reviewed, including an updated exam of the patient. There are NO changes in the patient's condition. Risks, benefits, and alternatives have been discussed and questions answered. Patient agrees to proceed with procedure.
[2024-08-22] MEDS: ONDANSETRON INJ 4 MG/2 ML VIAL IV PUSH (21:01)
--- NOTE | 2024-08-22 22:04 | PM.OBPRVD ---
OB - Vaginal Delivery Note Procedure Delivery date: 08/22/24 Induction method: None Delivery augmentation: Rupture of Membranes Delivery monitor: External FHT and External Uterine Route of delivery: Episiotomy description: None Laceration Description: Perineal - 2nd Degree Delivery repair: vicryl Specimen: No Quantitative Blood Loss (ml): 350 Disposition: Floor Complications: No immediate complications
[2024-08-22] MEDS: OXYTOCIN 30 UNITS/NS 500 ML 30 UNITS/500 ML BAG 125 UNITS IV CONT (22:15)
[2024-08-23] VITALS (7 sets, daily range): BP systolic 103–119; BP diastolic 66–78; PULSE 70–98; RESP 14–18; TEMP 36.6–37.1; O2SAT 98–99
[2024-08-23] MEDS: BENZOCAINE 20% AER SPR (*SP) 56 GM CAN 1 SPRAY TOPICAL ×2 (00:30→19:51)
[2024-08-23] MEDS: IBUPROFEN 600 MG TABLET PO ×4 (00:30→19:50)
[2024-08-23] MEDS: WITCH HAZEL 40 PADS 1 PAD TOPICAL ×2 (00:30→19:50)
[2024-08-23] MEDS: DOCUSATE SODIUM 100 MG CAPSULE PO ×3 (00:30→16:13)
--- NOTE | 2024-08-23 01:05 | OBPPTRN ---
Patient transferred to post room #280 via wheelchair. Support person present. Oriented to unit, room, information board, rooming in, admission packet and security measures. Patient verbalizes understanding.
--- NOTE | 2024-08-23 01:25 | PC.NURSE ---
Upon fundal assessment patient was found to be firm at u but presenting with a small trickle on massage. Trickle did not subside with further massage, this RN contacted labor RN to assess. Labor RN arrived on unit to assess, patient was walked to the bathroom and pt was able to void a small amount, once returned to bed labor RN was able to assist patient in expelling a small clot and trickle subsided. Pads including clot were weighed and found to be 38cc.
[2024-08-23 05:51] LABS: Hematocrit 31.7 % (37.0-47.0); Hemoglobin 10.5 g/dL (12.0-15.0)
--- NOTE | 2024-08-23 06:50 | P.PNOB_ITS ---
OB - PN: Subj Subjective Date/time seen: 08/23/24 06:50 Patient comments: no complaints, pain well controlled, incisional pain, tolerating diet and flatus present OB - PN: Obj Data Labs 08/23/24 04:56 Labs: Laboratory Results - last 24 hr 08/22/24 08/23/24 16:15 04:56 WBC 12.0 H RBC 3.62 L Hgb 12.0 10.5 L Hct 35.3 L 31.7 L MCV 97.5 MCH 33.1 MCHC 34.0 RDW 13.2 Plt Count 157 MPV 11.3 H Immature Gran % (Auto) 0.4 Neut % (Auto) 78.4 H Lymph % (Auto) 15.5 L Livingston % (Auto) 5.1 Eos % (Auto) 0.4 Baso % (Auto) 0.2 Lymph # (Auto) 1.87 Livingston # (Auto) 0.6 Eos # (Auto) 0.1 Baso # (Auto) 0.0 Abs Immat Gran (auto) 0.05 H Absolute Neuts (auto) 9.4 H Absolute Nucleated RBC 0.000 Nucleated RBC % 0.0 Syphilis IgG/IgM Ab Negative HIV 1&2 Ab/P24 Ag 4thGn Negative Blood Type A Positive Antibody Screen Negative OB - PN A/P Plan day: 1 Plan: routine care Comments: No problems, routine care Time Spent With Patient Time: Total time spent is greater than 50% in coordination of care (as documented) at patient's floor/unit and/or counseling patient: Exam 2 Const: General: comfortable, no acute distress and alert Resp: Effort & Inspection: normal respiratory effort Auscultation: no crackles, no rales and no rhonchi Cardio: Rate: regular rate Heart sounds: no click, no murmurs and no rubs GI: Inspection: non-distended GI Palp: No Tenderness to palpation present (GI) Auscultation: normal bowel sounds Other: Incision - CDI Extrem: General: normal to inspection, no pedal edema and no calf tenderness
[2024-08-23] MEDS: ACETAMINOPHEN 325 MG TABLET 650 MG PO ×2 (11:59→21:03)
--- NOTE | 2024-08-23 14:29 | WPDANLDPN2 ---
Anes-Prog Note L&D Date/Time: 08/23/24 14:29 Comfortable throughout: labor and delivery Neuraxial method: epidural Epidural/Spinal procedure site: clean & non-tender Neuro status: Neuro function grossly intact. Cardiovascular status: normal Respiratory status: normal Airway patency: baseline Mental status: baseline Post-Op hydration status: normal Vital Signs: Last Vital Signs Temp 36.6 C 08/23/24 12:48 Pulse 72 08/23/24 12:48 Resp 18 08/23/24 12:48 BP 119/78 08/23/24 12:48 Pulse Ox 98 08/23/24 12:48 O2 Del Method Room Air 08/23/24 12:25 Pain score (VAS): 2 I/O: Intake & Output 08/22/24 08/23/24 08/23/24 23:59 07:59 15:59 Intake Total 177.1 500 240 Output Total 388 Balance 177.1 112 240 Post-procedural complaints: none Patient feedback: Patient satisfied with anesthetic care.
--- NOTE | 2024-08-23 22:30 | PC.NURSE ---
Patient viewed the discharge video Mother & Baby Care, The First Two Weeks . Patient was given the opportunity and encouraged to ask questions. Patient verbalized understanding of information shared and has been given the mother/baby guide for home reference.
[2024-08-24] MEDS: IBUPROFEN 600 MG TABLET PO (03:35)
[2024-08-24] MEDS: ACETAMINOPHEN 325 MG TABLET 650 MG PO (06:54)
[2024-08-24] MEDS: DOCUSATE SODIUM 100 MG CAPSULE PO (06:55)
[2024-08-24 07:35] VITALS: BP 103/69; PULSE 76; RESP 16; TEMP 37.1; O2SAT 98
--- NOTE | 2024-08-24 08:51 | P.PNOB_ITS ---
OB - PN: Subj Subjective Date/time seen: 08/24/24 08:51 Interval history: pp day 2 doing well plan d/c home OB - PN: Obj Data Labs 08/23/24 04:56 OB - PN A/P Plan day: 2 Plan: routine care and discharge home Time Spent With Patient Time: Total time spent is greater than 50% in coordination of care (as documented) at patient's floor/unit and/or counseling patient: Review of Systems 2 Review of Systems: All systems reviewed & are unremarkable except as noted in HPI and below Exam 2 Const: General: cooperative, healthy appearing and comfortable Chest: Chest palpation & inspection: normal inspection of the chest Resp: Effort & Inspection: normal respiratory effort Cardio: Rate: regular rate Rhythm: regular rhythm GI: Inspection: normal to inspection
== END 2024-08-24 12:35 | disposition home or self-care (01) | DRG 807 ==
LOC: ANHLDR 15:55 → ANHOB2 08-23 01:18
PROVIDERS: Admitting Provider Obstetrics & Gynecology; PCP Family Medicine; Visit Provider Obstetrics & Gynecology
DX: O99.824 Streptococcus B carrier state complicating childbirth (principal); Z37.0 Single live birth; Z3A.39 39 weeks gestation of pregnancy; O70.1 Second degree perineal laceration during delivery; O69.81X0 Labor and delivery complicated by cord around neck, without compression, not applicable or unspecified
CPT/HCPCS: 36415; 85014; 85018; 85025; 86593; 86703; 86850; 86900; 86901; A9270; G0432; J0290; J2405; J2590; J2795; J7120